=== PATIENT | female | born 1940 | race Caucasian/White ===

== ENCOUNTER 2017-11-02 11:43 | Inpatient (IN) ==
[2017-11-02 13:08] LABS: Basophils % 0.3 % (0.0-0.8); Eosinophils # 0.1 10*3/uL (0.0-0.87); Eosinophils % 0.5 % (0.00-10.9); Hematocrit 39.7 VOL% (35.7-47.0); Hemoglobin 13.2 GM/DL (12.0-16.0); Immature Granulocytes % 0.5 %; Immature Granulocytes Absolute 0.07 #; Lymphocytes # 1.2 10*3/uL (1.4-4.0); Lymphocytes % 7.8 % (21.3-54.2); Mean Corpuscular HGB Conc 33.2 GM/DL (32-36); Mean Corpuscular Hemoglobin 30 PG (27-34); Mean Corpuscular Volume 91.1 FL (87-102); Monocytes # 0.6 10*3/uL (0.11-0.8); Monocytes % 3.9 % (1.7-12.7); Neutrophils # 13.1 10*3/uL (1.4-7.4); Platelet Count 231 T/CUMM (130-400); Red Blood Count 4.36 MC/CUMM (3.8-5.5); Red Cell Distribution Width 14.6 % (9.3-17.3)
[2017-11-02 13:27] LABS: Blood Urea Nitrogen 27 MG/DL (7-18); Calcium 8.7 MG/DL (8.5-10.1); Glucose 143 MG/DL (74-106); Potassium 4.2 MMOL/L (3.5-5.1); Sodium 136 MMOL/L (136-145)
[2017-11-02 14:41] LABS: Lactic Acid 3.1 MMOL/L (0.4-2.0)
[2017-11-02 15:03] LABS: Free T4 (Free Thyroxine) 1.48 NG/DL (0.76-1.46); Uric Acid 5.2 MG/DL (2.6-6.0)
[2017-11-02 20:58] LABS: Lactic Acid 2.1 MMOL/L (0.4-2.0)
[2017-11-03 08:14] LABS: Basophils % 0.1 % (0.0-0.8); Hematocrit 32.5 VOL% (35.7-47.0); Hemoglobin 10.6 GM/DL (12.0-16.0); Immature Granulocytes % 0.6 %; Immature Granulocytes Absolute 0.06 #; Lymphocytes # 0.5 10*3/uL (1.4-4.0); Lymphocytes % 5.5 % (21.3-54.2); Mean Corpuscular HGB Conc 32.6 GM/DL (32-36); Mean Corpuscular Hemoglobin 31 PG (27-34); Mean Corpuscular Volume 93.4 FL (87-102); Mean Platelet Volume 9.5 FL (9.6-12.0); Monocytes # 0.1 10*3/uL (0.11-0.8); Monocytes % 0.6 % (1.7-12.7); Neutrophils # 8.9 10*3/uL (1.4-7.4); Neutrophils % 93.2 % (38.7-73.9); Platelet Count 180 T/CUMM (130-400); Red Blood Count 3.48 MC/CUMM (3.8-5.5); Red Cell Distribution Width 14.8 % (9.3-17.3); White Blood Count 9.6 T/CUMM (4-12)
[2017-11-03 08:30] LABS: Band Neutrophils 2 % (0-10); Lymphocytes 7 % (20-55); Platelet Estimate Normal; Segmented Neutrophils 91 % (50-85); Total Cells Counted 100
[2017-11-03 08:31] LABS: Anisocytosis Slight; Poikilocytosis Slight
[2017-11-03 08:43] LABS: Albumin 2.8 G/DL (3.4-5.0); Bilirubin,Total 0.5 MG/DL (0.2-1.0); Calcium 7.5 MG/DL (8.5-10.1); Osmolality,Calculated 292.3 MOS/KG (273-304); Potassium 4.2 MMOL/L (3.5-5.1); Total Protein 6.2 G/DL (6.4-8.3)
[2017-11-04 08:05] LABS: Basophils % 0.1 % (0.0-0.8); Hematocrit 30.6 VOL% (35.7-47.0); Hemoglobin 10.1 GM/DL (12.0-16.0); Immature Granulocytes % 1.1 %; Immature Granulocytes Absolute 0.19 #; Lymphocytes # 0.5 10*3/uL (1.4-4.0); Lymphocytes % 2.6 % (21.3-54.2); Mean Corpuscular Hemoglobin 30 PG (27-34); Mean Corpuscular Volume 91.9 FL (87-102); Mean Platelet Volume 9.6 FL (9.6-12.0); Monocytes # 0.2 10*3/uL (0.11-0.8); Monocytes % 1.3 % (1.7-12.7); Neutrophils # 16.7 10*3/uL (1.4-7.4); Neutrophils % 94.9 % (38.7-73.9); Platelet Count 166 T/CUMM (130-400); Red Blood Count 3.33 MC/CUMM (3.8-5.5); Red Cell Distribution Width 15.2 % (9.3-17.3); White Blood Count 17.5 T/CUMM (4-12)
[2017-11-04 08:31] LABS: Hypochromasia 1+; Lymphocytes 2 % (20-55); Ovalocytes Slight; Platelet Estimate Normal; Segmented Neutrophils 98 % (50-85); Total Cells Counted 100
[2017-11-04 08:41] LABS: Alanine Aminotransferase 23 U/L (13-56); Albumin 2.7 G/DL (3.4-5.0); Alkaline Phosphatase 39 U/L (45-117); Aspartate Amino Transferase 20 U/L (0-37); Bilirubin,Total < 0.39 MG/DL (0.2-1.0); Blood Urea Nitrogen 32 MG/DL (7-18); Glucose 198 MG/DL (74-106); Osmolality,Calculated 293.3 MOS/KG (273-304); Potassium 4.2 MMOL/L (3.5-5.1); Sodium 141 MMOL/L (136-145); Total Protein 5.9 G/DL (6.4-8.3)
[2017-11-04 21:41] LABS: Apearance,Urine CLEAR (Clear); Bilirubin,Urine Negative (Negative); Blood, Urine Small mg/dL (Negative); Glucose,Urine (UA) 150 mg/dL (Negative); Ketones,Urine Negative (Negative); Mucus,Urine Occasional /LPF (Occasional); Nitrite,Urine Negative (Negative); Protein,Urine 100 MG/DL; RBC,Urine <1 /HPF (0-4); Squamous Epithelial Cell,Urine Occasional /HPF (0-10); Urine Color Straw (Yellow); Urine Specific Gravity 1.008 (1.001-1.035); Urine Urobilinogen < 2.0 EU/DL (0.2-1.0)
[2017-11-05 09:05] LABS: Basophils % 0.1 % (0.0-0.8); Hematocrit 33.4 VOL% (35.7-47.0); Immature Granulocytes % 1.6 %; Immature Granulocytes Absolute 0.29 #; Lymphocytes # 0.7 10*3/uL (1.4-4.0); Lymphocytes % 3.7 % (21.3-54.2); Mean Corpuscular HGB Conc 32.9 GM/DL (32-36); Mean Corpuscular Hemoglobin 31 PG (27-34); Mean Corpuscular Volume 92.5 FL (87-102); Monocytes # 0.4 10*3/uL (0.11-0.8); NRBC # 0.03 10*3/uL; Neutrophils # 16.7 10*3/uL (1.4-7.4); Neutrophils % 92.6 % (38.7-73.9); Platelet Count 180 T/CUMM (130-400); Red Blood Count 3.61 MC/CUMM (3.8-5.5); Red Cell Distribution Width 15.7 % (9.3-17.3)
[2017-11-05 09:21] LABS: Alanine Aminotransferase 36 U/L (13-56); Alkaline Phosphatase 41 U/L (45-117); Aspartate Amino Transferase 33 U/L (0-37); Bilirubin,Total < 0.39 MG/DL (0.2-1.0); Blood Urea Nitrogen 37 MG/DL (7-18); Calcium 8.1 MG/DL (8.5-10.1); Glucose 180 MG/DL (74-106); Potassium 4.3 MMOL/L (3.5-5.1); Sodium 143 MMOL/L (136-145); Total Protein 6.3 G/DL (6.4-8.3)
[2017-11-05 14:08] LABS: Lymphocytes 2 % (20-55); Nucleated Red Blood Cells 1 (0-5); Segmented Neutrophils 97 % (50-85); Total Cells Counted 100
[2017-11-05 14:10] LABS: Anisocytosis 1+; Hypochromasia 1+; Ovalocytes Few; Platelet Estimate Normal
[2017-11-06 07:40] LABS: Basophils % 0.1 % (0.0-0.8); Hematocrit 34.4 VOL% (35.7-47.0); Hemoglobin 11.3 GM/DL (12.0-16.0); Immature Granulocytes Absolute 0.29 #; Lymphocytes # 0.5 10*3/uL (1.4-4.0); Lymphocytes % 3.3 % (21.3-54.2); Mean Corpuscular HGB Conc 32.8 GM/DL (32-36); Mean Corpuscular Hemoglobin 31 PG (27-34); Mean Platelet Volume 9.9 FL (9.6-12.0); Monocytes # 0.3 10*3/uL (0.11-0.8); NRBC # 0.03 10*3/uL; Neutrophils # 13.1 10*3/uL (1.4-7.4); Neutrophils % 92.6 % (38.7-73.9); Platelet Count 169 T/CUMM (130-400); Red Cell Distribution Width 15.6 % (9.3-17.3); White Blood Count 14.2 T/CUMM (4-12)
[2017-11-06 08:09] LABS: Albumin 2.9 G/DL (3.4-5.0); Calcium 8.4 MG/DL (8.5-10.1); Osmolality,Calculated 297.3 MOS/KG (273-304); Potassium 4.3 MMOL/L (3.5-5.1); Total Protein 6.3 G/DL (6.4-8.3)
[2017-11-06 12:37] LABS: Lymphocytes 3 % (20-55); Platelet Estimate Adequate; Polychromasia Slight; Segmented Neutrophils 97 % (50-85); Total Cells Counted 100
[2017-11-07 05:55] LABS: Basophils % 0.2 % (0.0-0.8); Hematocrit 35.4 VOL% (35.7-47.0); Hemoglobin 11.9 GM/DL (12.0-16.0); Immature Granulocytes % 1.9 %; Immature Granulocytes Absolute 0.22 #; Lymphocytes # 0.4 10*3/uL (1.4-4.0); Lymphocytes % 3.7 % (21.3-54.2); Mean Corpuscular HGB Conc 33.6 GM/DL (32-36); Mean Corpuscular Hemoglobin 30 PG (27-34); Mean Corpuscular Volume 89.2 FL (87-102); Mean Platelet Volume 10.2 FL (9.6-12.0); Monocytes # 0.3 10*3/uL (0.11-0.8); Monocytes % 2.4 % (1.7-12.7); NRBC # 0.06 10*3/uL; Neutrophils # 10.9 10*3/uL (1.4-7.4); Neutrophils % 91.8 % (38.7-73.9); Platelet Count 185 T/CUMM (130-400); Red Blood Count 3.97 MC/CUMM (3.8-5.5); Red Cell Distribution Width 15.3 % (9.3-17.3); White Blood Count 11.9 T/CUMM (4-12)
[2017-11-07 06:25] LABS: Calcium 9.3 MG/DL (8.5-10.1); Osmolality,Calculated 296.5 MOS/KG (273-304); Potassium 4.6 MMOL/L (3.5-5.1)
[2017-11-07 06:30] LABS: Hypochromasia 1+; Lymphocytes 3 % (20-55); Platelet Estimate Adequate; Segmented Neutrophils 96 % (50-85); Total Cells Counted 100
[2017-11-07 11:54] VITALS: BP 150/82
== END 2017-11-07 14:31 | disposition home or self-care (01) | DRG 194 ==
LOC: N.ED 11:43 → SUATTDRO 16:41 → N.EDINP 16:41 → N.5E 18:58
PROVIDERS: ADMIT Internal Medicine; ATTEND Internal Medicine

== ENCOUNTER 2019-01-05 14:04 | Inpatient (IN) ==
[2019-01-05] MEDS ORDERED: LACTATED RINGERS 1,000 ML IV ONE (14:45)
[2019-01-05 14:57] LABS: Basophils # 0.1 10*3/uL (0.0-0.2); Basophils % 0.4 % (0.0-0.8); Eosinophils # 0.1 10*3/uL (0.0-0.87); Eosinophils % 0.9 % (0.00-10.9); Hematocrit 39.4 VOL% (35.7-47.0); Hemoglobin 12.7 GM/DL (12.0-16.0); Immature Granulocytes % 0.5 %; Immature Granulocytes Absolute 0.06 #; Lymphocytes # 2.2 10*3/uL (1.4-4.0); Lymphocytes % 19.1 % (21.3-54.2); Mean Corpuscular HGB Conc 32.2 GM/DL (32-36); Mean Corpuscular Volume 93.1 FL (87-102); Mean Platelet Volume 8.9 FL (9.6-12.0); Monocytes % 6.8 % (1.7-12.7); Neutrophils % 72.3 % (38.7-73.9); Platelet Count 243 T/CUMM (130-400); Red Blood Count 4.23 MC/CUMM (3.8-5.5); White Blood Count 11.6 T/CUMM (4-12)
[2019-01-05 15:17] LABS: Albumin 2.9 G/DL (3.4-5.0); Bilirubin,Total 0.4 MG/DL (0.2-1.0); Calcium 9.1 MG/DL (8.5-10.1); Osmolality,Calculated 272.4 MOS/KG (273-304); Total Protein 6.5 G/DL (6.4-8.3)
[2019-01-05 15:51] LABS: Apearance,Urine Slightly Hazy (Clear); Bacteria,Urine Occasional /HPF (Few); Bilirubin,Urine Negative (Negative); Blood, Urine Negative (Negative); Glucose,Urine (UA) 50 mg/dL (Negative); Ketones,Urine 5 mg/dL (Negative); Mucus,Urine Occasional /LPF (Occasional); Nitrite,Urine Negative (Negative); Protein,Urine >=500 MG/DL; RBC,Urine 1 /HPF (0-4); Squamous Epithelial Cell,Urine Occasional /HPF (0-10); Urine Color Yellow (Yellow); Urine Specific Gravity 1.016 (1.001-1.035); WBC,Urine 2 /HPF (0-6)
[2019-01-05] MEDS ORDERED: ONDANSETRON 4 MG/2 ML VIAL IV PRN (17:30)
[2019-01-05] MEDS ORDERED: ACETAMINOPHEN 325 MG TABLET PO PRN (17:30)
[2019-01-05] MEDS ORDERED: CRANBERRY EXTRACT VITAMIN C PO SCH (21:00)
[2019-01-05] MEDS ORDERED: MECLIZINE 25 MG TABLET PO SCH (21:00)
[2019-01-05] MEDS: SODIUM CHLORIDE 0.9% 1,000 ML IV SCH (21:06)
[2019-01-05] MEDS: ATORVASTATIN 80 MG TABLET PO SCH (21:25)
[2019-01-05] MEDS: EZETIMIBE 10 MG TABLET PO SCH (21:25)
[2019-01-05] MEDS: ASCORBIC ACID 500 MG TABLET PO SCH (21:25)
[2019-01-05] MEDS: ZALEPLON 5 MG CAPSULE PO PRN (22:27)
[2019-01-06] MEDS: hydrALAZINE 20 MG/1 ML VIAL IV PRN ×2 (05:02→15:27)
[2019-01-06] MEDS: ALBUTEROL 2.5 MG/3 ML NEB RESP TX PRN (05:40)
[2019-01-06] MEDS: LEVOTHYROXINE 88 MCG TABLET PO SCH (05:56)
[2019-01-06 06:11] LABS: Basophils % 0.3 % (0.0-0.8); Eosinophils # 0.1 10*3/uL (0.0-0.87); Eosinophils % 0.8 % (0.00-10.9); Hematocrit 42.3 VOL% (35.7-47.0); Hemoglobin 13.8 GM/DL (12.0-16.0); Immature Granulocytes % 0.3 %; Immature Granulocytes Absolute 0.04 #; Lymphocytes # 1.9 10*3/uL (1.4-4.0); Lymphocytes % 16.3 % (21.3-54.2); Mean Corpuscular HGB Conc 32.6 GM/DL (32-36); Mean Corpuscular Volume 93.8 FL (87-102); Mean Platelet Volume 9.3 FL (9.6-12.0); Monocytes % 5.4 % (1.7-12.7); Neutrophils % 76.9 % (38.7-73.9); Platelet Count 270 T/CUMM (130-400); Red Blood Count 4.51 MC/CUMM (3.8-5.5); White Blood Count 11.7 T/CUMM (4-12)
[2019-01-06 06:42] LABS: Calcium 10.3 MG/DL (8.5-10.1); Osmolality,Calculated 280.7 MOS/KG (273-304)
[2019-01-06] MEDS: SODIUM CHLORIDE 0.9% 1,000 ML IV SCH (08:24)
[2019-01-06] MEDS: CYANOCOBALAMIN 500 MCG TABLET PO SCH (08:24)
[2019-01-06] MEDS: MAGNESIUM OXIDE 400 MG TABLET PO SCH (08:24)
[2019-01-06] MEDS: ASCORBIC ACID 500 MG TABLET PO SCH ×2 (08:25→21:01)
[2019-01-06] MEDS: METOPROLOL SUCCINATE XL 50 MG TABLET PO SCH (08:25)
[2019-01-06] MEDS: ALLOPURINOL 100 MG TABLET PO SCH (08:25)
[2019-01-06] MEDS ORDERED: PANTOPRAZOLE 40 MG TABLET PO SCH (09:00)
[2019-01-06] MEDS: POLYETHYLENE GLYCOL POWDER 17 GM PACK PO SCH ×2 (15:08→21:18)
[2019-01-06] MEDS: metroNIDAZOLE INJ 500 MG in PREMIX 1 EACH IV SCH ×2 (15:28→23:43)
[2019-01-06] MEDS: CIPROFLOXACIN INJ 400 MG in PREMIX 1 EACH IV SCH (16:45)
[2019-01-06] MEDS: PANTOPRAZOLE 40 MG TABLET PO SCH (21:01)
[2019-01-06] MEDS: ATORVASTATIN 80 MG TABLET PO SCH (21:01)
[2019-01-06] MEDS: EZETIMIBE 10 MG TABLET PO SCH (21:01)
[2019-01-06] MEDS: ZALEPLON 5 MG CAPSULE PO PRN (21:01)
[2019-01-07] MEDS: SODIUM CHLORIDE 0.9% 1,000 ML IV SCH ×3 (01:24→20:41)
[2019-01-07 03:25] LABS: Basophils % 0.3 % (0.0-0.8); Eosinophils % 0.1 % (0.00-10.9); Hematocrit 40.1 VOL% (35.7-47.0); Hemoglobin 12.8 GM/DL (12.0-16.0); Immature Granulocytes % 0.9 %; Immature Granulocytes Absolute 0.13 #; Lymphocytes # 1.2 10*3/uL (1.4-4.0); Lymphocytes % 8.6 % (21.3-54.2); Mean Corpuscular HGB Conc 31.9 GM/DL (32-36); Mean Corpuscular Volume 95.5 FL (87-102); Mean Platelet Volume 9.2 FL (9.6-12.0); Monocytes % 5.4 % (1.7-12.7); Neutrophils % 84.7 % (38.7-73.9); Platelet Count 228 T/CUMM (130-400); Red Cell Distribution Width 14.1 % (9.3-17.3); White Blood Count 14.5 T/CUMM (4-12)
[2019-01-07 03:40] LABS: Osmolality,Calculated 267.7 MOS/KG (273-304)
[2019-01-07] MEDS ORDERED: MAGNESIUM SULF RIDER 2 GM in PREMIX 1 EACH IV PRN ×4 (04:09→04:31)
[2019-01-07] MEDS ORDERED: MAGNESIUM SULF RIDER 4 GM in PREMIX 1 EACH IV PRN (04:34)
[2019-01-07] MEDS: hydrALAZINE 20 MG/1 ML VIAL IV PRN (04:39)
[2019-01-07] MEDS: MAGNESIUM SULF RIDER 2 GM in PREMIX 1 EACH IV PRN (05:37)
[2019-01-07] MEDS: LEVOTHYROXINE 88 MCG TABLET PO SCH (05:37)
[2019-01-07] MEDS: metroNIDAZOLE INJ 500 MG in PREMIX 1 EACH IV SCH ×3 (09:50→23:36)
[2019-01-07] MEDS: ASCORBIC ACID 500 MG TABLET PO SCH ×2 (09:50→20:42)
[2019-01-07] MEDS: PANTOPRAZOLE 40 MG TABLET PO SCH ×2 (09:50→20:42)
[2019-01-07] MEDS: MAGNESIUM OXIDE 400 MG TABLET PO SCH (09:51)
[2019-01-07] MEDS: CHOLECALCIFEROL 1,000 UNIT TABLET PO SCH (09:51)
[2019-01-07] MEDS: ALLOPURINOL 100 MG TABLET PO SCH (09:51)
[2019-01-07] MEDS: CYANOCOBALAMIN 500 MCG TABLET PO SCH (09:51)
[2019-01-07] MEDS: POLYETHYLENE GLYCOL POWDER 17 GM PACK PO SCH ×3 (09:51→20:46)
[2019-01-07] MEDS: METOPROLOL SUCCINATE XL 50 MG TABLET PO SCH (09:51)
[2019-01-07] MEDS: CIPROFLOXACIN INJ 400 MG in PREMIX 1 EACH IV SCH (11:22)
[2019-01-07] MEDS ORDERED: SODIUM POLYSTYRENE SULFATE 15 GM/60 ML BOTTLE PO ONE (12:22)
[2019-01-07] MEDS: EZETIMIBE 10 MG TABLET PO SCH (20:42)
[2019-01-07] MEDS: ATORVASTATIN 80 MG TABLET PO SCH (20:42)
[2019-01-07] MEDS: ZALEPLON 5 MG CAPSULE PO PRN (23:36)
[2019-01-08] MEDS: CIPROFLOXACIN INJ 400 MG in PREMIX 1 EACH IV SCH (05:10)
[2019-01-08] MEDS: SODIUM CHLORIDE 0.9% 1,000 ML IV SCH (05:13)
[2019-01-08 05:35] LABS: Basophils % 0.2 % (0.0-0.8); Eosinophils % 0.1 % (0.00-10.9); Hematocrit 35.4 VOL% (35.7-47.0); Hemoglobin 11.5 GM/DL (12.0-16.0); Immature Granulocytes % 0.7 %; Immature Granulocytes Absolute 0.14 #; Lymphocytes # 0.9 10*3/uL (1.4-4.0); Lymphocytes % 4.4 % (21.3-54.2); Mean Corpuscular HGB Conc 32.5 GM/DL (32-36); Mean Corpuscular Volume 94.7 FL (87-102); Mean Platelet Volume 9.5 FL (9.6-12.0); Neutrophils % 89.6 % (38.7-73.9); Platelet Count 218 T/CUMM (130-400); Red Blood Count 3.74 MC/CUMM (3.8-5.5); Red Cell Distribution Width 14.2 % (9.3-17.3); White Blood Count 19.2 T/CUMM (4-12)
[2019-01-08 05:51] LABS: Calcium 8.4 MG/DL (8.5-10.1)
[2019-01-08] MEDS: LEVOTHYROXINE 88 MCG TABLET PO SCH (05:51)
[2019-01-08 06:02] LABS: Hypochromasia Slight; Lymphocytes 4 % (20-55); Segmented Neutrophils 95 % (50-85); Total Cells Counted 100
[2019-01-08 06:03] LABS: Burr Cells Slight; Microcytosis Slight; Ovalocytes Slight; Platelet Estimate Normal
[2019-01-08] MEDS: metroNIDAZOLE INJ 500 MG in PREMIX 1 EACH IV SCH ×3 (06:30→23:16)
[2019-01-08] MEDS: MAGNESIUM OXIDE 400 MG TABLET PO SCH (09:52)
[2019-01-08] MEDS: CYANOCOBALAMIN 500 MCG TABLET PO SCH (09:53)
[2019-01-08] MEDS: PANTOPRAZOLE 40 MG TABLET PO SCH ×2 (09:53→20:56)
[2019-01-08] MEDS: POLYETHYLENE GLYCOL POWDER 17 GM PACK PO SCH ×4 (09:53→20:56)
[2019-01-08] MEDS: METOPROLOL SUCCINATE XL 50 MG TABLET PO SCH (09:53)
[2019-01-08] MEDS: ALLOPURINOL 100 MG TABLET PO SCH (09:58)
[2019-01-08] MEDS: ASCORBIC ACID 500 MG TABLET PO SCH ×2 (09:58→20:56)
[2019-01-08] MEDS ORDERED: LORazepam 2 MG/1 ML VIAL IV ONE (13:54)
[2019-01-08] MEDS ORDERED: FUROSEMIDE 40 MG/4 ML VIAL IV ONE (15:45)
[2019-01-08] MEDS ORDERED: PIPERACILLIN/TAZOBACTAM 3,375 MG in SODIUM CHLORIDE 0.9% 100 ML IV SCH (16:30)
[2019-01-08] MEDS ORDERED: SODIUM CHLORIDE 0.45% 1,000 ML IV SCH (17:00)
[2019-01-08] MEDS: ZALEPLON 5 MG CAPSULE PO PRN (20:56)
[2019-01-08] MEDS: EZETIMIBE 10 MG TABLET PO SCH (20:56)
[2019-01-08] MEDS: ATORVASTATIN 80 MG TABLET PO SCH (20:56)
[2019-01-09] MEDS: PIPERACILLIN/TAZOBACTAM 2,250 MG in SODIUM CHLORIDE 0.9% 100 ML IV SCH ×3 (01:03→17:15)
[2019-01-09 02:35] LABS: Basophils % 0.2 % (0.0-0.8); Eosinophils % 0.1 % (0.00-10.9); Hemoglobin 10.6 GM/DL (12.0-16.0); Immature Granulocytes % 0.8 %; Immature Granulocytes Absolute 0.11 #; Lymphocytes # 0.5 10*3/uL (1.4-4.0); Lymphocytes % 3.7 % (21.3-54.2); Mean Corpuscular HGB Conc 31.2 GM/DL (32-36); Mean Corpuscular Volume 96.6 FL (87-102); Mean Platelet Volume 9.3 FL (9.6-12.0); Monocytes % 4.1 % (1.7-12.7); Neutrophils % 91.1 % (38.7-73.9); Platelet Count 211 T/CUMM (130-400); Red Blood Count 3.52 MC/CUMM (3.8-5.5); Red Cell Distribution Width 14.6 % (9.3-17.3); White Blood Count 13.1 T/CUMM (4-12)
[2019-01-09 02:56] LABS: Albumin 2.7 G/DL (3.4-5.0); Bilirubin,Total 0.4 MG/DL (0.2-1.0); Calcium 7.5 MG/DL (8.5-10.1); Osmolality,Calculated 272.5 MOS/KG (273-304); Total Protein 5.5 G/DL (6.4-8.3)
[2019-01-09] MEDS ORDERED: FUROSEMIDE 20 MG/2 ML VIAL IV ONE (03:31)
[2019-01-09] MEDS ORDERED: ETOMIDATE 20 MG/10 ML VIAL IV ONE ×2 (03:35→04:07)
[2019-01-09] MEDS ORDERED: VECURONIUM 10 MG VIAL IV ONE ×2 (03:35→04:06)
[2019-01-09] MEDS ORDERED: PROPOFOL 1,000 MG/100 ML BOTTLE IV ONE (03:39)
[2019-01-09] MEDS ORDERED: MIDAZOLAM 100 MG in SODIUM CHLORIDE 0.9% 80 ML IV PRN (03:48)
[2019-01-09] MEDS ORDERED: NOREPINEPHRINE 4 MG/4 ML VIAL IV ONE (03:52)
[2019-01-09] MEDS ORDERED: NALOXONE 0.4 MG/ML VIAL IV ONE ×2 (04:00→04:07)
[2019-01-09] MEDS ORDERED: NALOXONE 0.4 MG/ML VIAL ONE (04:01)
[2019-01-09] MEDS: NOREPINEPHRINE 8 MG in SODIUM CHLORIDE 0.9% 242 ML IV PRN ×3 (04:05→18:21)
[2019-01-09 04:20] LABS: Hypochromasia 1+; Lymphocytes 2 % (20-55); Platelet Estimate Adequate; Segmented Neutrophils 96 % (50-85); Total Cells Counted 100
[2019-01-09 04:21] LABS: ABG Base Excess -1.5 MMOL/L (-2.5-2.5); ABG HCO3 23.2 MMOL/L (20-26); ABG PCO2 45.9 MM HG (35-48); ABG PH 7.337 (7.35-7.45); ABG TCO2 22.3 MMOL/L (23-27); Allen Test Positive; Pt O2 Delivery Device Ventilator
[2019-01-09 04:22] LABS: Microcytosis Slight
[2019-01-09] MEDS: PROPOFOL 1,000 MG/100 ML BOTTLE IV SCH (05:27)
[2019-01-09 05:36] LABS: Bacteria,Urine Few /HPF (Few); Mucus,Urine Occasional /LPF (Occasional); RBC,Urine 31 /HPF (0-4); Squamous Epithelial Cell,Urine Occasional /HPF (0-10); WBC,Urine 1087 /HPF (0-6)
[2019-01-09 05:42] LABS: Apearance,Urine Cloudy (Clear); Glucose,Urine (UA) >500 mg/dL (Negative); Ketones,Urine 5 mg/dL (Negative); Nitrite,Urine Negative (Negative); Protein,Urine 100 MG/DL; Urine Color Yellow (Yellow); Urine Specific Gravity 1.008 (1.001-1.035)
[2019-01-09 05:43] LABS: Bilirubin,Urine Negative (Negative); Blood, Urine Negative (Negative); Urine Urobilinogen < 2.0 EU/DL (0.2-1.0)
[2019-01-09] MEDS: hydrALAZINE 20 MG/1 ML VIAL IV PRN (06:30)
[2019-01-09] MEDS: metroNIDAZOLE INJ 500 MG in PREMIX 1 EACH IV SCH (08:37)
[2019-01-09] MEDS ORDERED: CIPROFLOXACIN INJ 400 MG in PREMIX 1 EACH IV SCH (09:00)
[2019-01-09] MEDS: ASCORBIC ACID 500 MG TABLET PO SCH ×2 (09:08→21:29)
[2019-01-09] MEDS: CYANOCOBALAMIN 500 MCG TABLET PO SCH (09:08)
[2019-01-09] MEDS: ALLOPURINOL 100 MG TABLET PO SCH (09:08)
[2019-01-09] MEDS: MAGNESIUM OXIDE 400 MG TABLET PO SCH (09:09)
[2019-01-09] MEDS: LEVOTHYROXINE 88 MCG TABLET PO SCH (09:09)
[2019-01-09] MEDS: LANSOPRAZOLE ODT 30 MG TABLET PER TUBE SCH ×2 (09:09→21:30)
[2019-01-09] MEDS: POLYETHYLENE GLYCOL POWDER 17 GM PACK PO SCH ×3 (09:10→21:30)
[2019-01-09] MEDS: CHOLECALCIFEROL 1,000 UNIT TABLET PO SCH (09:10)
[2019-01-09] MEDS ORDERED: SODIUM CHLORIDE 0.9% 1,000 ML IV ONE ×2 (09:48→12:01)
[2019-01-09] MEDS ORDERED: VANCOMYCIN INJ 1,000 MG in SODIUM CHLORIDE 0.9% 250 ML IV PRN (10:00)
[2019-01-09] MEDS: METOPROLOL SUCCINATE XL 50 MG TABLET PO SCH (10:22)
[2019-01-09] MEDS ORDERED: VANCOMYCIN INJ 1,250 MG in SODIUM CHLORIDE 0.9% 250 ML IV ONE (10:30)
[2019-01-09] MEDS: SODIUM CHLORIDE 0.9% 1,000 ML IV SCH ×2 (10:54→23:17)
[2019-01-09] MEDS ORDERED: AMIODARONE INJ 150 MG in DEXTROSE 5% 100 ML IV ONE (12:10)
[2019-01-09] MEDS ORDERED: AMIODARONE INJ 450 MG in DEXTROSE 5% 241 ML IV SCH (12:30)
[2019-01-09] MEDS ORDERED: DOBUTamine 500 MG/250 ML PREMIX IV PRN (18:16)
[2019-01-09] MEDS ORDERED: PHENYLEPHRINE DRIP 40 MG/250 ML PREMIX IV PRN (19:49)
[2019-01-09] MEDS: ATORVASTATIN 80 MG TABLET PO SCH (21:28)
[2019-01-09] MEDS: EZETIMIBE 10 MG TABLET PO SCH (21:29)
[2019-01-10] MEDS: AMIODARONE INJ 450 MG in DEXTROSE 5% 241 ML IV SCH ×2 (01:06→18:24)
[2019-01-10] MEDS: NOREPINEPHRINE 8 MG in SODIUM CHLORIDE 0.9% 242 ML IV PRN ×2 (01:38→15:59)
[2019-01-10] MEDS: PIPERACILLIN/TAZOBACTAM 2,250 MG in SODIUM CHLORIDE 0.9% 100 ML IV SCH ×3 (01:39→17:38)
[2019-01-10] MEDS: PROPOFOL 1,000 MG/100 ML BOTTLE IV SCH (05:42)
[2019-01-10] MEDS: SODIUM CHLORIDE 0.9% 1,000 ML IV SCH ×3 (07:18→23:15)
[2019-01-10] MEDS: LEVOTHYROXINE 88 MCG TABLET PO SCH (07:24)
[2019-01-10] MEDS: LANSOPRAZOLE ODT 30 MG TABLET PER TUBE SCH ×2 (09:40→22:22)
[2019-01-10] MEDS: ALLOPURINOL 100 MG TABLET PO SCH (09:40)
[2019-01-10] MEDS: ASCORBIC ACID 500 MG TABLET PO SCH ×2 (09:40→22:22)
[2019-01-10] MEDS: POLYETHYLENE GLYCOL POWDER 17 GM PACK PO SCH ×3 (09:40→22:22)
[2019-01-10] MEDS: CYANOCOBALAMIN 500 MCG TABLET PO SCH (09:40)
[2019-01-10] MEDS: MAGNESIUM OXIDE 400 MG TABLET PO SCH (09:40)
[2019-01-10 12:21] LABS: Basophils % 0.2 % (0.0-0.8); Eosinophils % 0.1 % (0.00-10.9); Hematocrit 34.3 VOL% (35.7-47.0); Hemoglobin 10.8 GM/DL (12.0-16.0); Immature Granulocytes % 0.7 %; Immature Granulocytes Absolute 0.14 #; Lymphocytes # 0.4 10*3/uL (1.4-4.0); Lymphocytes % 1.8 % (21.3-54.2); Mean Corpuscular HGB Conc 31.5 GM/DL (32-36); Mean Corpuscular Volume 96.6 FL (87-102); Mean Platelet Volume 9.4 FL (9.6-12.0); NRBC # 0.03 10*3/uL; Neutrophils % 94.2 % (38.7-73.9); Platelet Count 164 T/CUMM (130-400); Red Blood Count 3.55 MC/CUMM (3.8-5.5); Red Cell Distribution Width 14.9 % (9.3-17.3); White Blood Count 19.1 T/CUMM (4-12)
[2019-01-10 12:33] LABS: Calcium 6.6 MG/DL (8.5-10.1); Osmolality,Calculated 287.4 MOS/KG (273-304)
[2019-01-10 14:58] LABS: Band Neutrophils 5 % (0-10); Lymphocytes 1 % (20-55); Segmented Neutrophils 94 % (50-85); Total Cells Counted 100
[2019-01-10 14:59] LABS: Acanthocytes Moderate; Anisocytosis 2+
[2019-01-10 15:00] LABS: Ovalocytes Slight
[2019-01-10] MEDS: ATORVASTATIN 80 MG TABLET PO SCH (22:21)
[2019-01-10] MEDS: AMIODARONE 200 MG TABLET PO SCH (22:21)
[2019-01-10] MEDS: EZETIMIBE 10 MG TABLET PO SCH (22:22)
[2019-01-11] MEDS: PIPERACILLIN/TAZOBACTAM 2,250 MG in SODIUM CHLORIDE 0.9% 100 ML IV SCH ×3 (02:00→16:17)
[2019-01-11 04:51] LABS: ABG Base Excess -7.8 MMOL/L (-2.5-2.5); ABG HCO3 18.1 MMOL/L (20-26); ABG Oxygen Saturation 99.6 % (95-100); ABG PCO2 29.5 MM HG (35-48); ABG PH 7.358 (7.35-7.45); ABG TCO2 15.1 MMOL/L (23-27); Allen Test Positive; Pt O2 Delivery Device Ventilator
[2019-01-11 05:16] LABS: Calcium 6.8 MG/DL (8.5-10.1); Osmolality,Calculated 287.3 MOS/KG (273-304)
[2019-01-11 05:25] LABS: Basophils % 0.2 % (0.0-0.8); Eosinophils # 0.1 10*3/uL (0.0-0.87); Eosinophils % 0.7 % (0.00-10.9); Hemoglobin 10.2 GM/DL (12.0-16.0); Immature Granulocytes % 0.4 %; Immature Granulocytes Absolute 0.04 #; Lymphocytes # 0.7 10*3/uL (1.4-4.0); Lymphocytes % 6.3 % (21.3-54.2); Mean Corpuscular HGB Conc 28.8 GM/DL (32-36); Mean Corpuscular Volume 106.3 FL (87-102); Monocytes % 5.5 % (1.7-12.7); NRBC # 0.02 10*3/uL; Neutrophils % 86.9 % (38.7-73.9); Platelet Count 130 T/CUMM (130-400); Red Blood Count 3.33 MC/CUMM (3.8-5.5); Red Cell Distribution Width 14.9 % (9.3-17.3); White Blood Count 10.6 T/CUMM (4-12)
[2019-01-11 05:28] LABS: Hematocrit 34.1 VOL% (35.7-47.0)
[2019-01-11] MEDS: PROPOFOL 1,000 MG/100 ML BOTTLE IV SCH ×2 (05:30→09:07)
[2019-01-11] MEDS: LEVOTHYROXINE 88 MCG TABLET PO SCH (06:28)
[2019-01-11] MEDS ORDERED: VANCOMYCIN INJ 1,000 MG in SODIUM CHLORIDE 0.9% 250 ML IV ONE (08:30)
[2019-01-11] MEDS ORDERED: LORazepam 2 MG/1 ML VIAL IV PRN (08:32)
[2019-01-11] MEDS: ALBUTEROL 2.5 MG/3 ML NEB RESP TX PRN (08:35)
[2019-01-11] MEDS ORDERED: SUCCINYLCHOLINE 200 MG/10 ML VIAL IV ONE (09:00)
[2019-01-11] MEDS ORDERED: SUCCINYLCHOLINE 200 MG/10 ML VIAL ONE (09:07)
[2019-01-11] MEDS: ALBUTEROL/IPRATROPIUM 3 ML NEB RESP TX SCH ×4 (11:27→22:53)
[2019-01-11] MEDS: LANSOPRAZOLE ODT 30 MG TABLET PER TUBE SCH ×2 (11:40→21:32)
[2019-01-11] MEDS: AMIODARONE 200 MG TABLET PO SCH ×2 (11:40→21:33)
[2019-01-11] MEDS: ASCORBIC ACID 500 MG TABLET PO SCH ×2 (11:40→21:32)
[2019-01-11] MEDS: CHOLECALCIFEROL 1,000 UNIT TABLET PO SCH (11:40)
[2019-01-11] MEDS: CYANOCOBALAMIN 500 MCG TABLET PO SCH (11:40)
[2019-01-11] MEDS: MAGNESIUM OXIDE 400 MG TABLET PO SCH (11:40)
[2019-01-11] MEDS: ALLOPURINOL 100 MG TABLET PO SCH (11:40)
[2019-01-11] MEDS: POLYETHYLENE GLYCOL POWDER 17 GM PACK PO SCH ×3 (11:41→21:33)
[2019-01-11] MEDS: AMIODARONE INJ 450 MG in DEXTROSE 5% 241 ML IV SCH (11:49)
[2019-01-11] MEDS: methylPREDNISolone SOD SUC 40 MG/1 ML VIAL IV SCH ×2 (11:50→16:36)
[2019-01-11] MEDS: SODIUM CHLORIDE 0.9% 1,000 ML IV SCH (11:55)
[2019-01-11] MEDS: SODIUM BICARB INJ 50 MEQ in DEXTROSE 5% NACL 0.45% 1,000 ML IV SCH (13:30)
[2019-01-11] MEDS: ATORVASTATIN 80 MG TABLET PO SCH (21:32)
[2019-01-11] MEDS: EZETIMIBE 10 MG TABLET PO SCH (21:32)
[2019-01-12] MEDS: PIPERACILLIN/TAZOBACTAM 2,250 MG in SODIUM CHLORIDE 0.9% 100 ML IV SCH ×3 (00:59→17:30)
[2019-01-12] MEDS: SODIUM BICARB INJ 50 MEQ in DEXTROSE 5% NACL 0.45% 1,000 ML IV SCH (00:59)
[2019-01-12] MEDS: AMIODARONE INJ 450 MG in DEXTROSE 5% 241 ML IV SCH (00:59)
[2019-01-12] MEDS: methylPREDNISolone SOD SUC 40 MG/1 ML VIAL IV SCH ×3 (01:02→17:45)
[2019-01-12] MEDS: ALBUTEROL/IPRATROPIUM 3 ML NEB RESP TX SCH ×6 (02:22→22:40)
[2019-01-12 04:08] LABS: ABG Base Excess -6.3 MMOL/L (-2.5-2.5); ABG HCO3 19.3 MMOL/L (20-26); ABG Oxygen Saturation 99.5 % (95-100); ABG PCO2 30.9 MM HG (35-48); ABG PH 7.373 (7.35-7.45); ABG TCO2 16.3 MMOL/L (23-27); Allen Test Positive; Pt O2 Delivery Device Ventilator
[2019-01-12] MEDS: LEVOTHYROXINE 88 MCG TABLET PO SCH (05:48)
[2019-01-12 07:54] LABS: Basophils % 0.2 % (0.0-0.8); Eosinophils % 0.1 % (0.00-10.9); Hematocrit 32.6 VOL% (35.7-47.0); Hemoglobin 10.6 GM/DL (12.0-16.0); Immature Granulocytes Absolute 0.11 #; Lymphocytes # 0.3 10*3/uL (1.4-4.0); Lymphocytes % 2.3 % (21.3-54.2); Mean Corpuscular HGB Conc 32.5 GM/DL (32-36); Mean Corpuscular Volume 95.3 FL (87-102); Mean Platelet Volume 9.7 FL (9.6-12.0); Monocytes % 0.7 % (1.7-12.7); Neutrophils % 95.7 % (38.7-73.9); Platelet Count 143 T/CUMM (130-400); Red Blood Count 3.42 MC/CUMM (3.8-5.5); Red Cell Distribution Width 14.9 % (9.3-17.3); White Blood Count 10.8 T/CUMM (4-12)
[2019-01-12 08:13] LABS: Albumin 2.1 G/DL (3.4-5.0); Bilirubin,Total 0.5 MG/DL (0.2-1.0); Calcium 6.8 MG/DL (8.5-10.1); Osmolality,Calculated 294.3 MOS/KG (273-304); Total Protein 5.1 G/DL (6.4-8.3)
[2019-01-12 08:14] LABS: Burr Cells Slight; Hypochromasia 1+; Lymphocytes 3 % (20-55); Ovalocytes Slight; Platelet Estimate Adequate; Segmented Neutrophils 96 % (50-85); Total Cells Counted 100
[2019-01-12] MEDS ORDERED: POTASSIUM CHLORIDE RIDER 10 MEQ in PREMIX 1 EACH IV PRN (08:27)
[2019-01-12] MEDS ORDERED: POTASSIUM CHLORIDE RIDER 20 MEQ in PREMIX 1 EACH IV PRN (08:29)
[2019-01-12] MEDS: MAGNESIUM OXIDE 400 MG TABLET PO SCH (09:44)
[2019-01-12] MEDS: LANSOPRAZOLE ODT 30 MG TABLET PER TUBE SCH ×2 (09:44→21:20)
[2019-01-12] MEDS: CYANOCOBALAMIN 500 MCG TABLET PO SCH (09:44)
[2019-01-12] MEDS: ALLOPURINOL 100 MG TABLET PO SCH (09:45)
[2019-01-12] MEDS: AMIODARONE 200 MG TABLET PO SCH ×2 (09:45→21:19)
[2019-01-12] MEDS: ASCORBIC ACID 500 MG TABLET PO SCH ×2 (09:45→21:19)
[2019-01-12] MEDS: POLYETHYLENE GLYCOL POWDER 17 GM PACK PO SCH ×3 (09:50→21:20)
[2019-01-12] MEDS: PROPOFOL 1,000 MG/100 ML BOTTLE IV SCH ×2 (09:50→19:00)
[2019-01-12] MEDS ORDERED: hydrALAZINE 20 MG/1 ML VIAL IV PRN (12:14)
[2019-01-12] MEDS ORDERED: VANCOMYCIN INJ 1,000 MG in SODIUM CHLORIDE 0.9% 250 ML IV ONE (12:30)
[2019-01-12] MEDS: DEXTROSE 5% IV SCH (14:31)
[2019-01-12] MEDS: POTASSIUM CHLORIDE IV SCH (14:31)
[2019-01-12] MEDS: SODIUM BICARB IV SCH (14:31)
[2019-01-12] MEDS ORDERED: DEXTROSE 50% 25 GM/50 ML VIAL IV PRN (16:20)
[2019-01-12] MEDS ORDERED: GLUCAGON 1 MG VIAL IM PRN (16:20)
[2019-01-12] MEDS: INSULIN REGULAR 100 UNIT/ML SUBCUT SCH ×2 (19:46→23:48)
[2019-01-12] MEDS: ATORVASTATIN 80 MG TABLET PO SCH (21:19)
[2019-01-12] MEDS: EZETIMIBE 10 MG TABLET PO SCH (21:19)
[2019-01-13] MEDS: methylPREDNISolone SOD SUC 40 MG/1 ML VIAL IV SCH ×3 (00:50→18:14)
[2019-01-13] MEDS: PIPERACILLIN/TAZOBACTAM 2,250 MG in SODIUM CHLORIDE 0.9% 100 ML IV SCH ×3 (00:52→18:16)
[2019-01-13] MEDS: DEXTROSE 5% IV SCH ×2 (01:58→17:56)
[2019-01-13] MEDS: POTASSIUM CHLORIDE IV SCH ×2 (01:58→17:56)
[2019-01-13] MEDS: SODIUM BICARB IV SCH ×2 (01:58→17:56)
[2019-01-13] MEDS: ALBUTEROL/IPRATROPIUM 3 ML NEB RESP TX SCH ×4 (02:35→14:50)
[2019-01-13 03:29] LABS: ABG Base Excess -2.6 MMOL/L (-2.5-2.5); ABG HCO3 22.3 MMOL/L (20-26); ABG Oxygen Saturation 99.5 % (95-100); ABG PCO2 33.6 MM HG (35-48); Allen Test Positive; Pt O2 Delivery Device Ventilator
[2019-01-13 03:59] LABS: Hematocrit 29.8 VOL% (35.7-47.0); Hemoglobin 9.7 GM/DL (12.0-16.0); Immature Granulocytes % 1.9 %; Immature Granulocytes Absolute 0.21 #; Lymphocytes # 0.3 10*3/uL (1.4-4.0); Lymphocytes % 2.9 % (21.3-54.2); Mean Corpuscular HGB Conc 32.6 GM/DL (32-36); Mean Corpuscular Volume 93.4 FL (87-102); Mean Platelet Volume 10.3 FL (9.6-12.0); Monocytes % 2.1 % (1.7-12.7); NRBC # 0.02 10*3/uL; Neutrophils % 93.1 % (38.7-73.9); Platelet Count 142 T/CUMM (130-400); Red Blood Count 3.19 MC/CUMM (3.8-5.5); Red Cell Distribution Width 15.1 % (9.3-17.3); White Blood Count 11.3 T/CUMM (4-12)
[2019-01-13 04:23] LABS: Calcium 6.7 MG/DL (8.5-10.1); Osmolality,Calculated 296.1 MOS/KG (273-304)
[2019-01-13 04:40] LABS: Prealbumin 14.8 MG/DL (20-40)
[2019-01-13 04:41] LABS: Band Neutrophils 1 % (0-10); Hypochromasia Slight; Lymphocytes 1 % (20-55); Microcytosis Slight; Nucleated Red Blood Cells 1 (0-5); Segmented Neutrophils 96 % (50-85); Total Cells Counted 100
[2019-01-13 04:42] LABS: Acanthocytes Few; Burr Cells Slight; Platelet Estimate Adequate
[2019-01-13] MEDS: INSULIN REGULAR 100 UNIT/ML SUBCUT SCH ×4 (05:40→23:10)
[2019-01-13] MEDS: LEVOTHYROXINE 88 MCG TABLET PO SCH (05:40)
[2019-01-13] MEDS: MAGNESIUM SULF RIDER 2 GM in PREMIX 1 EACH IV PRN (05:42)
[2019-01-13] MEDS: PROPOFOL 1,000 MG/100 ML BOTTLE IV SCH ×3 (05:50→17:56)
[2019-01-13] MEDS: SODIUM BICARB INJ 50 MEQ in DEXTROSE 5% NACL 0.45% 1,000 ML IV SCH (07:25)
[2019-01-13] MEDS: MAGNESIUM OXIDE 400 MG TABLET PO SCH (09:14)
[2019-01-13] MEDS: LANSOPRAZOLE ODT 30 MG TABLET PER TUBE SCH ×2 (09:14→21:16)
[2019-01-13] MEDS: AMIODARONE 200 MG TABLET PO SCH ×2 (09:14→21:16)
[2019-01-13] MEDS: ALLOPURINOL 100 MG TABLET PO SCH (09:15)
[2019-01-13] MEDS: POLYETHYLENE GLYCOL POWDER 17 GM PACK PO SCH ×3 (09:15→21:09)
[2019-01-13] MEDS: CHOLECALCIFEROL 1,000 UNIT TABLET PO SCH (09:15)
[2019-01-13] MEDS: ASCORBIC ACID 500 MG TABLET PO SCH ×2 (09:15→21:16)
[2019-01-13] MEDS: CYANOCOBALAMIN 500 MCG TABLET PO SCH (09:15)
[2019-01-13] MEDS ORDERED: METOPROLOL TARTRATE 25 MG TABLET PO SCH (11:22)
[2019-01-13] MEDS: POTASSIUM CHLORIDE 20 MEQ/15 ML UDCUP PER TUBE SCH ×3 (14:41→21:16)
[2019-01-13] MEDS: METOPROLOL TARTRATE 25 MG TABLET PO SCH ×2 (18:13→22:56)
[2019-01-13] MEDS: ATORVASTATIN 80 MG TABLET PO SCH (21:16)
[2019-01-13] MEDS: EZETIMIBE 10 MG TABLET PO SCH (21:16)
[2019-01-13] MEDS: ZALEPLON 5 MG CAPSULE PO PRN (22:56)
[2019-01-14] MEDS: methylPREDNISolone SOD SUC 40 MG/1 ML VIAL IV SCH ×3 (01:10→16:46)
[2019-01-14] MEDS: PIPERACILLIN/TAZOBACTAM 2,250 MG in SODIUM CHLORIDE 0.9% 100 ML IV SCH ×3 (01:10→16:48)
[2019-01-14 03:17] LABS: ABG HCO3 24.5 MMOL/L (20-26); ABG Oxygen Saturation 99.5 % (95-100); ABG PCO2 37.1 MM HG (35-48); ABG PH 7.422 (7.35-7.45); ABG TCO2 21.9 MMOL/L (23-27); Allen Test Positive; Pt O2 Delivery Device Ventilator
[2019-01-14] MEDS: PROPOFOL 1,000 MG/100 ML BOTTLE IV SCH ×3 (05:24→18:25)
[2019-01-14] MEDS: METOPROLOL TARTRATE 25 MG TABLET PO SCH ×2 (05:24→09:31)
[2019-01-14] MEDS: INSULIN REGULAR 100 UNIT/ML SUBCUT SCH ×4 (05:24→23:38)
[2019-01-14] MEDS: LEVOTHYROXINE 88 MCG TABLET PO SCH (05:30)
[2019-01-14 05:50] LABS: Calcium 7.5 MG/DL (8.5-10.1)
[2019-01-14] MEDS: CYANOCOBALAMIN 500 MCG TABLET PO SCH (09:10)
[2019-01-14] MEDS: AMIODARONE 200 MG TABLET PO SCH ×2 (09:13→21:21)
[2019-01-14] MEDS: ASCORBIC ACID 500 MG TABLET PO SCH ×2 (09:13→21:21)
[2019-01-14] MEDS: MAGNESIUM OXIDE 400 MG TABLET PO SCH (09:13)
[2019-01-14] MEDS: ALLOPURINOL 100 MG TABLET PO SCH (09:13)
[2019-01-14] MEDS: LANSOPRAZOLE ODT 30 MG TABLET PER TUBE SCH ×2 (09:14→21:21)
[2019-01-14] MEDS: POLYETHYLENE GLYCOL POWDER 17 GM PACK PO SCH ×3 (09:14→20:06)
[2019-01-14] MEDS ORDERED: VANCOMYCIN INJ 1,000 MG in SODIUM CHLORIDE 0.9% 250 ML IV SCH (10:00)
[2019-01-14] MEDS ORDERED: NOREPINEPHRINE 8 MG in SODIUM CHLORIDE 0.9% 234 ML IV PRN (10:32)
[2019-01-14] MEDS ORDERED: NOREPINEPHRINE 4 MG/4 ML VIAL IV ONE (10:33)
[2019-01-14] MEDS ORDERED: NOREPINEPHRINE 16 MG in SODIUM CHLORIDE 0.9% 234 ML IV PRN (11:00)
[2019-01-14] MEDS: DEXTROSE 5% IV SCH (12:03)
[2019-01-14] MEDS: SODIUM BICARB IV SCH (12:03)
[2019-01-14] MEDS: POTASSIUM CHLORIDE IV SCH (12:03)
[2019-01-14 13:11] LABS: Basophils # 0.1 10*3/uL (0.0-0.2); Basophils % 0.2 % (0.0-0.8); Hematocrit 38.6 VOL% (35.7-47.0); Hemoglobin 11.9 GM/DL (12.0-16.0); Immature Granulocytes % 4.5 %; Immature Granulocytes Absolute 0.98 #; Lymphocytes # 3.4 10*3/uL (1.4-4.0); Lymphocytes % 15.9 % (21.3-54.2); Mean Corpuscular HGB Conc 30.8 GM/DL (32-36); Mean Corpuscular Volume 99.5 FL (87-102); Mean Platelet Volume 10.7 FL (9.6-12.0); Monocytes % 2.1 % (1.7-12.7); NRBC # 0.12 10*3/uL; Neutrophils % 77.3 % (38.7-73.9); Platelet Count 163 T/CUMM (130-400); Red Blood Count 3.88 MC/CUMM (3.8-5.5); Red Cell Distribution Width 15.8 % (9.3-17.3); White Blood Count 21.6 T/CUMM (4-12)
[2019-01-14] MEDS: fentaNYL INJ 1,250 MCG in SODIUM CHLORIDE 0.9% 225 ML IV PRN (13:22)
[2019-01-14 13:25] LABS: ABG Base Excess -0.6 MMOL/L (-2.5-2.5); ABG HCO3 23.9 MMOL/L (20-26); ABG PCO2 30.4 MM HG (35-48); ABG PH 7.471 (7.35-7.45); ABG TCO2 19.9 MMOL/L (23-27)
[2019-01-14 13:40] LABS: Band Neutrophils 1 % (0-10); Lymphocytes 16 % (20-55); Nucleated Red Blood Cells 1 (0-5); Segmented Neutrophils 82 % (50-85); Total Cells Counted 100
[2019-01-14 13:41] LABS: Anisocytosis Slight; Burr Cells Few; Elliptocytes Few; Poikilocytosis Few
[2019-01-14 13:42] LABS: Platelet Estimate Adequate
[2019-01-14 13:44] LABS: Blood Urea Nitrogen 47 MG/DL (7-18); Calcium 7.5 MG/DL (8.5-10.1); Estimated Glom Filtration Rate 18 ML/MIN; Glucose 264 MG/DL (74-106); Osmolality,Calculated 301.3 MOS/KG (273-304)
[2019-01-14 13:45] LABS: Troponin I 0.615 NG/ML (0.00-0.045)
[2019-01-14] MEDS: EZETIMIBE 10 MG TABLET PO SCH (21:21)
[2019-01-14] MEDS: ATORVASTATIN 80 MG TABLET PO SCH (21:21)
[2019-01-14 22:04] LABS: CKMB % 6.5 %
[2019-01-14 22:07] LABS: Troponin I 7.52 NG/ML (0.00-0.045)
[2019-01-14] MEDS ORDERED: ENOXAPARIN 100 MG/ML SYRINGE SUBCUT SCH ×2 (22:30→23:00)
[2019-01-15 01:06] LABS: CKMB % 6.3 %
[2019-01-15 01:08] LABS: Troponin I 8.77 NG/ML (0.00-0.045)
[2019-01-15] MEDS: methylPREDNISolone SOD SUC 40 MG/1 ML VIAL IV SCH ×3 (01:41→17:30)
[2019-01-15] MEDS: PIPERACILLIN/TAZOBACTAM 2,250 MG in SODIUM CHLORIDE 0.9% 100 ML IV SCH ×2 (01:42→09:30)
[2019-01-15 03:15] LABS: ABG Base Excess 0.5 MMOL/L (-2.5-2.5); ABG HCO3 22.1 MMOL/L (20-26); ABG PCO2 26.3 MM HG (35-48); ABG PH 7.542 (7.35-7.45); ABG PO2 367.7 MM HG (80-95); ABG TCO2 22.9 MMOL/L (23-27)
[2019-01-15 03:18] LABS: Basophils % 0.1 % (0.0-0.8); Hematocrit 30.1 VOL% (35.7-47.0); Hemoglobin 9.9 GM/DL (12.0-16.0); Immature Granulocytes % 2.1 %; Immature Granulocytes Absolute 0.37 #; Lymphocytes # 0.7 10*3/uL (1.4-4.0); Lymphocytes % 4.2 % (21.3-54.2); Mean Corpuscular HGB Conc 32.9 GM/DL (32-36); Mean Corpuscular Volume 93.5 FL (87-102); NRBC # 0.11 10*3/uL; Neutrophils % 89.6 % (38.7-73.9); Platelet Count 139 T/CUMM (130-400); Red Blood Count 3.22 MC/CUMM (3.8-5.5); Red Cell Distribution Width 15.3 % (9.3-17.3); White Blood Count 17.3 T/CUMM (4-12)
[2019-01-15 03:40] LABS: Lymphocytes 7 % (20-55); Segmented Neutrophils 91 % (50-85); Total Cells Counted 100
[2019-01-15] MEDS: DEXTROSE 5% IV SCH (03:40)
[2019-01-15] MEDS: POTASSIUM CHLORIDE IV SCH (03:40)
[2019-01-15] MEDS: SODIUM BICARB IV SCH (03:40)
[2019-01-15 03:42] LABS: Calcium 7.5 MG/DL (8.5-10.1); Osmolality,Calculated 303.3 MOS/KG (273-304)
[2019-01-15 03:45] LABS: CKMB % 5.9 %
[2019-01-15 03:47] LABS: Troponin I 8.4 NG/ML (0.00-0.045)
[2019-01-15 03:54] LABS: Burr Cells 2+; Elliptocytes 1+; Hypochromasia Slight; Platelet Estimate Normal
[2019-01-15 03:56] LABS: Polychromasia Few
[2019-01-15 04:26] LABS: Prealbumin 26.9 MG/DL (20-40)
[2019-01-15 06:53] LABS: CKMB % 4.8 %
[2019-01-15 06:54] LABS: Troponin I 7.78 NG/ML (0.00-0.045)
[2019-01-15] MEDS: PROPOFOL 1,000 MG/100 ML BOTTLE IV SCH ×2 (07:05→19:15)
[2019-01-15] MEDS: LEVOTHYROXINE 88 MCG TABLET PO SCH (07:05)
[2019-01-15] MEDS: INSULIN REGULAR 100 UNIT/ML SUBCUT SCH ×3 (07:13→18:17)
[2019-01-15] MEDS: POLYETHYLENE GLYCOL POWDER 17 GM PACK PO SCH ×3 (09:38→20:25)
[2019-01-15] MEDS: ALLOPURINOL 100 MG TABLET PO SCH (09:38)
[2019-01-15] MEDS: AMIODARONE 200 MG TABLET PO SCH (09:38)
[2019-01-15] MEDS: ASCORBIC ACID 500 MG TABLET PO SCH ×2 (09:38→20:24)
[2019-01-15] MEDS: CYANOCOBALAMIN 500 MCG TABLET PO SCH (09:38)
[2019-01-15] MEDS: LANSOPRAZOLE ODT 30 MG TABLET PER TUBE SCH ×2 (09:38→20:25)
[2019-01-15] MEDS: MAGNESIUM OXIDE 400 MG TABLET PO SCH (09:50)
[2019-01-15] MEDS: CHOLECALCIFEROL 1,000 UNIT TABLET PO SCH (09:57)
[2019-01-15] MEDS ORDERED: EPINEPHrine 1 MG/10 ML SYRINGE ONE (09:57)
[2019-01-15] MEDS: METOPROLOL TARTRATE 25 MG TABLET PO SCH ×2 (11:51→20:25)
[2019-01-15] MEDS: ASPIRIN EC 81 MG TABLET PO SCH (12:14)
[2019-01-15] MEDS: SUCRALFATE 1 GM TABLET NG SCH ×3 (12:14→20:25)
[2019-01-15 15:49] LABS: Basophils % 0.1 % (0.0-0.8); Hemoglobin 9.1 GM/DL (12.0-16.0); Immature Granulocytes % 1.2 %; Lymphocytes # 0.6 10*3/uL (1.4-4.0); Lymphocytes % 3.4 % (21.3-54.2); Mean Corpuscular HGB Conc 32.5 GM/DL (32-36); Mean Corpuscular Volume 94.6 FL (87-102); Monocytes % 3.1 % (1.7-12.7); NRBC # 0.03 10*3/uL; Neutrophils % 92.2 % (38.7-73.9); Red Blood Count 2.96 MC/CUMM (3.8-5.5); Red Cell Distribution Width 15.3 % (9.3-17.3); White Blood Count 16.1 T/CUMM (4-12)
[2019-01-15 15:53] LABS: Platelet Count 107 T/CUMM (130-400)
[2019-01-15 16:08] LABS: Apearance,Urine CLEAR (Clear); Bilirubin,Urine Negative (Negative); Blood, Urine Small mg/dL (Negative); Calcium Oxalate Crystals,Urine Occasional /HPF (Few); Glucose,Urine (UA) Negative (Negative); Ketones,Urine Negative (Negative); Nitrite,Urine Negative (Negative); Protein,Urine 100 MG/DL; RBC,Urine 36 /HPF (0-4); Squamous Epithelial Cell,Urine Occasional /HPF (0-10); Transitional Epi Cells,Urine Occasional /HPF (<1); Urine Color Amber (Yellow); Urine Specific Gravity 1.015 (1.001-1.035); Urine Urobilinogen < 2.0 EU/DL (0.2-1.0); WBC,Urine 12 /HPF (0-6)
[2019-01-15 17:12] LABS: Band Neutrophils 2 % (0-10); Lymphocytes 4 % (20-55); Nucleated Red Blood Cells 1 (0-5); Segmented Neutrophils 92 % (50-85); Total Cells Counted 100
[2019-01-15 17:13] LABS: Anisocytosis Slight; Burr Cells Few; Elliptocytes Few; Macrocytosis Slight; Platelet Estimate Decreased; Reactive Lymphocytes Slight
[2019-01-15] MEDS: EZETIMIBE 10 MG TABLET PO SCH (20:24)
[2019-01-15] MEDS: ATORVASTATIN 80 MG TABLET PO SCH (20:25)
[2019-01-16] MEDS: methylPREDNISolone SOD SUC 40 MG/1 ML VIAL IV SCH ×2 (00:19→08:37)
[2019-01-16] MEDS: INSULIN REGULAR 100 UNIT/ML SUBCUT SCH ×4 (00:19→17:38)
[2019-01-16] MEDS: fentaNYL INJ 1,250 MCG in SODIUM CHLORIDE 0.9% 225 ML IV PRN (01:58)
[2019-01-16 04:56] LABS: ABG Base Excess 1.8 MMOL/L (-2.5-2.5); ABG Oxygen Saturation 99.6 % (95-100); ABG PCO2 34.8 MM HG (35-48); ABG PH 7.469 (7.35-7.45); ABG TCO2 23.1 MMOL/L (23-27)
[2019-01-16 05:03] LABS: Basophils % 0.1 % (0.0-0.8); Hematocrit 29.2 VOL% (35.7-47.0); Hemoglobin 9.3 GM/DL (12.0-16.0); Immature Granulocytes % 1.7 %; Immature Granulocytes Absolute 0.37 #; Lymphocytes # 0.7 10*3/uL (1.4-4.0); Lymphocytes % 3.4 % (21.3-54.2); Mean Corpuscular HGB Conc 31.8 GM/DL (32-36); Mean Corpuscular Volume 94.8 FL (87-102); Monocytes % 3.1 % (1.7-12.7); NRBC # 0.03 10*3/uL; Neutrophils % 91.7 % (38.7-73.9); Platelet Count 127 T/CUMM (130-400); Red Blood Count 3.08 MC/CUMM (3.8-5.5); Red Cell Distribution Width 14.9 % (9.3-17.3); White Blood Count 21.9 T/CUMM (4-12)
[2019-01-16 05:15] LABS: Calcium 8.5 MG/DL (8.5-10.1)
[2019-01-16 05:24] LABS: Lymphocytes 4 % (20-55); Segmented Neutrophils 93 % (50-85); Total Cells Counted 100
[2019-01-16 05:25] LABS: Platelet Estimate Decreased
[2019-01-16] MEDS: LEVOTHYROXINE 88 MCG TABLET PO SCH (06:25)
[2019-01-16] MEDS: PROPOFOL 1,000 MG/100 ML BOTTLE IV SCH ×3 (06:43→22:00)
[2019-01-16] MEDS: MORPHINE 4 MG/1 ML VIAL IV PRN ×4 (07:38→18:14)
[2019-01-16] MEDS: SUCRALFATE 1 GM TABLET NG SCH ×4 (07:38→21:04)
[2019-01-16] MEDS: ASPIRIN EC 81 MG TABLET PO SCH (08:37)
[2019-01-16] MEDS: POLYETHYLENE GLYCOL POWDER 17 GM PACK PO SCH ×3 (08:37→21:05)
[2019-01-16] MEDS: LANSOPRAZOLE ODT 30 MG TABLET PER TUBE SCH ×2 (08:37→21:05)
[2019-01-16] MEDS: METOPROLOL TARTRATE 25 MG TABLET PO SCH ×2 (08:38→21:05)
[2019-01-16] MEDS: ASCORBIC ACID 500 MG TABLET PO SCH ×2 (08:38→21:05)
[2019-01-16] MEDS: ALLOPURINOL 100 MG TABLET PO SCH (08:38)
[2019-01-16] MEDS: CYANOCOBALAMIN 500 MCG TABLET PO SCH (08:38)
[2019-01-16] MEDS: MAGNESIUM OXIDE 400 MG TABLET PO SCH (08:39)
[2019-01-16] MEDS: AMIODARONE 200 MG TABLET PO SCH (08:39)
[2019-01-16] MEDS ORDERED: SODIUM POLYSTYRENE SULFATE 15 GM/60 ML BOTTLE PO ONE (11:03)
[2019-01-16] MEDS: ALBUMIN 25% 25 GM in PREMIX 1 EACH IV SCH (11:47)
[2019-01-16] MEDS: PIPERACILLIN/TAZOBACTAM 3,375 MG in SODIUM CHLORIDE 0.9% 100 ML IV SCH ×2 (11:48→13:12)
[2019-01-16] MEDS: MENTHOL/ZINC OXIDE OINT 71 GM JAR TOP SCH ×2 (15:07→21:04)
[2019-01-16] MEDS: EZETIMIBE 10 MG TABLET PO SCH (21:05)
[2019-01-16] MEDS: ATORVASTATIN 80 MG TABLET PO SCH (21:05)
[2019-01-17] MEDS: PIPERACILLIN/TAZOBACTAM 3,375 MG in SODIUM CHLORIDE 0.9% 100 ML IV SCH ×2 (00:40→12:48)
[2019-01-17] MEDS: ALBUMIN 25% 25 GM in PREMIX 1 EACH IV SCH ×2 (00:40→14:06)
[2019-01-17] MEDS: INSULIN REGULAR 100 UNIT/ML SUBCUT SCH ×4 (01:55→18:13)
[2019-01-17] MEDS: MORPHINE 4 MG/1 ML VIAL IV PRN (02:53)
[2019-01-17 04:24] LABS: Pt O2 Delivery Device Ventilator
[2019-01-17 04:25] LABS: ABG Base Excess 1.9 MMOL/L (-2.5-2.5); ABG HCO3 26.1 MMOL/L (20-26); ABG Oxygen Saturation 99.5 % (95-100); ABG PH 7.469 (7.35-7.45); ABG TCO2 23.9 MMOL/L (23-27)
[2019-01-17 04:57] LABS: Basophils % 0.1 % (0.0-0.8); Eosinophils % 0.1 % (0.00-10.9); Hematocrit 22.7 VOL% (35.7-47.0); Immature Granulocytes % 2.6 %; Immature Granulocytes Absolute 0.45 #; Lymphocytes # 0.6 10*3/uL (1.4-4.0); Lymphocytes % 3.6 % (21.3-54.2); Mean Corpuscular HGB Conc 31.7 GM/DL (32-36); Mean Corpuscular Volume 95.4 FL (87-102); Mean Platelet Volume 11.3 FL (9.6-12.0); Monocytes % 3.8 % (1.7-12.7); NRBC # 0.05 10*3/uL; Neutrophils % 89.8 % (38.7-73.9); Platelet Count 104 T/CUMM (130-400); Red Cell Distribution Width 14.8 % (9.3-17.3); White Blood Count 17.4 T/CUMM (4-12)
[2019-01-17 04:58] LABS: Red Blood Count 2.38 MC/CUMM (3.8-5.5)
[2019-01-17 04:59] LABS: Hemoglobin 7.2 GM/DL (12.0-16.0)
[2019-01-17 05:03] LABS: PT Patient Result 10.5 SECS (9.6-12.2)
[2019-01-17 05:04] LABS: Calcium 8.8 MG/DL (8.5-10.1)
[2019-01-17 05:23] LABS: Lymphocytes 1 % (20-55); Platelet Estimate Adequate; Segmented Neutrophils 99 % (50-85); Total Cells Counted 100
[2019-01-17 05:24] LABS: Polychromasia Slight
[2019-01-17] MEDS: LEVOTHYROXINE 88 MCG TABLET PO SCH ×2 (06:41→11:02)
[2019-01-17] MEDS: PROPOFOL 1,000 MG/100 ML BOTTLE IV SCH ×5 (06:42→23:08)
[2019-01-17] MEDS ORDERED: LACTATED RINGERS 1,000 ML IV SCH (08:00)
[2019-01-17] MEDS ORDERED: BUPIVACAINE MPF 0.25% 30 ML VIAL ONE (09:35)
[2019-01-17] MEDS ORDERED: LIDOCAINE 1%/EPI INJ 20 ML VIAL ONE (09:35)
[2019-01-17] MEDS ORDERED: HEPARIN 5,000 UNIT/1 ML VIAL ONE (09:35)
[2019-01-17] MEDS ORDERED: ceFAZolin 1,000 MG VIAL ONE (09:37)
[2019-01-17] MEDS ORDERED: SODIUM CHLORIDE 0.9% 1,000 ML IV PRN ×3 (10:26→18:00)
[2019-01-17] MEDS ORDERED: ROCURONIUM 100 MG/10 ML VIAL IV ONE (10:32)
[2019-01-17] MEDS ORDERED: MIDAZOLAM 2 MG/2 ML VIAL ONE (10:32)
[2019-01-17] MEDS: LANSOPRAZOLE ODT 30 MG TABLET PER TUBE SCH ×2 (11:01→21:59)
[2019-01-17] MEDS: AMIODARONE 200 MG TABLET PO SCH (11:01)
[2019-01-17] MEDS: METOPROLOL TARTRATE 25 MG TABLET PO SCH ×2 (11:01→21:59)
[2019-01-17] MEDS: predniSONE 20 MG TABLET PO SCH (11:02)
[2019-01-17] MEDS: SUCRALFATE 1 GM TABLET NG SCH ×4 (11:02→21:58)
[2019-01-17] MEDS: CYANOCOBALAMIN 500 MCG TABLET PO SCH (11:03)
[2019-01-17] MEDS: MAGNESIUM OXIDE 400 MG TABLET PO SCH (11:03)
[2019-01-17] MEDS: POLYETHYLENE GLYCOL POWDER 17 GM PACK PO SCH ×3 (11:03→21:59)
[2019-01-17] MEDS: ASPIRIN EC 81 MG TABLET PO SCH (11:03)
[2019-01-17] MEDS: ASCORBIC ACID 500 MG TABLET PO SCH ×2 (11:04→21:59)
[2019-01-17] MEDS: CHOLECALCIFEROL 1,000 UNIT TABLET PO SCH (11:04)
[2019-01-17 11:21] LABS: Hematocrit 22.5 VOL% (35.7-47.0); Hemoglobin 7.2 GM/DL (12.0-16.0)
[2019-01-17 11:32] LABS: PT Patient Result 10.7 SECS (9.6-12.2); Partial Thromboplastin Time 27.5 SECS (20.8-36.0)
[2019-01-17] MEDS: MENTHOL/ZINC OXIDE OINT 71 GM JAR TOP SCH ×2 (14:19→21:58)
[2019-01-17] MEDS: ALLOPURINOL 100 MG TABLET PO SCH (14:24)
[2019-01-17 16:53] LABS: Hematocrit 23.1 VOL% (35.7-47.0); Hemoglobin 7.4 GM/DL (12.0-16.0)
[2019-01-17] MEDS: ATORVASTATIN 80 MG TABLET PO SCH (21:59)
[2019-01-17] MEDS: EZETIMIBE 10 MG TABLET PO SCH (22:00)
[2019-01-18] MEDS: INSULIN REGULAR 100 UNIT/ML SUBCUT SCH ×4 (00:14→18:04)
[2019-01-18] MEDS ORDERED: hydrALAZINE 20 MG/1 ML VIAL ONE (00:42)
[2019-01-18] MEDS: hydrALAZINE 20 MG/1 ML VIAL IV PRN (00:44)
[2019-01-18] MEDS: ALBUMIN 25% 25 GM in PREMIX 1 EACH IV SCH ×2 (02:33→11:45)
[2019-01-18] MEDS: PROPOFOL 1,000 MG/100 ML BOTTLE IV SCH ×3 (03:01→12:25)
[2019-01-18] MEDS: PIPERACILLIN/TAZOBACTAM 3,375 MG in SODIUM CHLORIDE 0.9% 100 ML IV SCH ×2 (03:06→12:25)
[2019-01-18 03:48] LABS: ABG Base Excess 1.1 MMOL/L (-2.5-2.5); ABG HCO3 25.4 MMOL/L (20-26); ABG Oxygen Saturation 99.7 % (95-100); ABG PCO2 30.4 MM HG (35-48); ABG PH 7.502 (7.35-7.45); ABG TCO2 21.9 MMOL/L (23-27); Allen Test Positive; Pt O2 Delivery Device Ventilator
[2019-01-18 04:52] LABS: Basophils % 0.1 % (0.0-0.8); Hematocrit 23.3 VOL% (35.7-47.0); Immature Granulocytes Absolute 0.25 #; Lymphocytes # 0.4 10*3/uL (1.4-4.0); Lymphocytes % 3.1 % (21.3-54.2); Mean Corpuscular HGB Conc 34.3 GM/DL (32-36); Mean Corpuscular Volume 90.7 FL (87-102); Mean Platelet Volume 10.8 FL (9.6-12.0); Monocytes % 3.4 % (1.7-12.7); NRBC # 0.02 10*3/uL; Neutrophils % 91.4 % (38.7-73.9); Platelet Count 105 T/CUMM (130-400); Red Blood Count 2.57 MC/CUMM (3.8-5.5); Red Cell Distribution Width 15.5 % (9.3-17.3); White Blood Count 12.7 T/CUMM (4-12)
[2019-01-18 05:18] LABS: Hypochromasia 1+; Lymphocytes 3 % (20-55); Ovalocytes Slight; Platelet Estimate Decreased; Segmented Neutrophils 95 % (50-85); Total Cells Counted 100
[2019-01-18 05:19] LABS: Calcium 8.7 MG/DL (8.5-10.1)
[2019-01-18 05:23] LABS: Prealbumin 19.8 MG/DL (20-40)
[2019-01-18] MEDS: LEVOTHYROXINE 88 MCG TABLET PO SCH (05:45)
[2019-01-18] MEDS: SUCRALFATE 1 GM TABLET NG SCH ×4 (07:38→21:40)
[2019-01-18] MEDS: CYANOCOBALAMIN 500 MCG TABLET PO SCH (08:09)
[2019-01-18] MEDS: MAGNESIUM OXIDE 400 MG TABLET PO SCH (08:09)
[2019-01-18] MEDS: predniSONE 20 MG TABLET PO SCH (08:09)
[2019-01-18] MEDS: ASCORBIC ACID 500 MG TABLET PO SCH ×2 (08:09→21:40)
[2019-01-18] MEDS: MENTHOL/ZINC OXIDE OINT 71 GM JAR TOP SCH ×2 (08:09→21:41)
[2019-01-18] MEDS: LANSOPRAZOLE ODT 30 MG TABLET PER TUBE SCH ×2 (08:09→21:40)
[2019-01-18] MEDS: POLYETHYLENE GLYCOL POWDER 17 GM PACK PO SCH ×3 (08:09→21:40)
[2019-01-18] MEDS: AMIODARONE 200 MG TABLET PO SCH (08:09)
[2019-01-18 09:47] LABS: Albumin 2.8 G/DL (3.4-5.0); Bilirubin,Total 0.99 MG/DL (0.2-1.0); Calcium 8.8 MG/DL (8.5-10.1); Total Protein 4.8 G/DL (6.4-8.3)
[2019-01-18] MEDS ORDERED: SODIUM CHLORIDE 0.9% 1,000 ML IV PRN ×2 (10:12→17:00)
[2019-01-18 13:08] LABS: Eosinophils % 0.2 % (0.00-10.9); Hematocrit 19.4 VOL% (35.7-47.0); Hemoglobin 6.5 GM/DL (12.0-16.0); Immature Granulocytes Absolute 0.24 #; Lymphocytes # 0.5 10*3/uL (1.4-4.0); Lymphocytes % 4.1 % (21.3-54.2); Mean Corpuscular HGB Conc 33.5 GM/DL (32-36); Mean Corpuscular Volume 90.2 FL (87-102); Mean Platelet Volume 11.3 FL (9.6-12.0); Monocytes % 4.2 % (1.7-12.7); NRBC # 0.02 10*3/uL; Neutrophils % 89.5 % (38.7-73.9); Platelet Count 91 T/CUMM (130-400); Red Blood Count 2.15 MC/CUMM (3.8-5.5); Red Cell Distribution Width 15.8 % (9.3-17.3); White Blood Count 12.3 T/CUMM (4-12)
[2019-01-18 13:29] LABS: Anisocytosis 2+; Band Neutrophils 1 % (0-10); Hypersegmented Neutrophil Few; Lymphocytes 1 % (20-55); Platelet Estimate Decreased; Polychromasia Slight; Segmented Neutrophils 96 % (50-85); Total Cells Counted 100
[2019-01-18 13:30] LABS: Poikilocytosis Slight
[2019-01-18] MEDS ORDERED: MICROFIBRILLAR COLLAGEN POWDER 1 GM CAN TOP ONE (14:10)
[2019-01-18] MEDS ORDERED: SEVOFLURANE 1 UNIT/15 MINUTE INH ONE (14:59)
[2019-01-18] MEDS ORDERED: SODIUM CHLORIDE 0.9% 1,000 ML IV ONE (15:00)
[2019-01-18] MEDS ORDERED: CISATRACURIUM 10 MG/5 ML VIAL IV ONE (15:00)
[2019-01-18 15:37] LABS: Hematocrit 23.2 VOL% (35.7-47.0); Hemoglobin 7.8 GM/DL (12.0-16.0); Platelet Count 86 T/CUMM (130-400)
[2019-01-18 15:45] LABS: Partial Thromboplastin Time 28.3 SECS (20.8-36.0)
[2019-01-18] MEDS ORDERED: FUROSEMIDE 40 MG/4 ML VIAL IV SCH (16:00)
[2019-01-18] MEDS: FUROSEMIDE 40 MG/4 ML VIAL IV SCH (16:44)
[2019-01-18 21:22] LABS: Hematocrit 30.3 VOL% (35.7-47.0); Hemoglobin 10.2 GM/DL (12.0-16.0)
[2019-01-18] MEDS: EZETIMIBE 10 MG TABLET PO SCH (21:40)
[2019-01-18] MEDS: ATORVASTATIN 80 MG TABLET PO SCH (21:40)
[2019-01-19] MEDS: INSULIN REGULAR 100 UNIT/ML SUBCUT SCH ×4 (00:09→18:11)
[2019-01-19] MEDS: ALBUMIN 25% 25 GM in PREMIX 1 EACH IV SCH ×3 (01:35→22:48)
[2019-01-19] MEDS: PROPOFOL 1,000 MG/100 ML BOTTLE IV SCH ×3 (02:10→19:49)
[2019-01-19] MEDS: PIPERACILLIN/TAZOBACTAM 3,375 MG in SODIUM CHLORIDE 0.9% 100 ML IV SCH ×3 (02:41→22:48)
[2019-01-19 04:10] LABS: ABG Base Excess 0.1 MMOL/L (-2.5-2.5); ABG HCO3 24.5 MMOL/L (20-26); ABG Oxygen Saturation 99.9 % (95-100); ABG PCO2 41.2 MM HG (35-48); ABG PH 7.391 (7.35-7.45); ABG TCO2 23.2 MMOL/L (23-27); Allen Test Positive; Pt O2 Delivery Device Ventilator
[2019-01-19 04:16] LABS: Basophils % 0.1 % (0.0-0.8); Eosinophils % 0.2 % (0.00-10.9); Hematocrit 24.8 VOL% (35.7-47.0); Hemoglobin 8.2 GM/DL (12.0-16.0); Immature Granulocytes % 1.3 %; Immature Granulocytes Absolute 0.23 #; Lymphocytes # 0.4 10*3/uL (1.4-4.0); Lymphocytes % 2.2 % (21.3-54.2); Mean Corpuscular HGB Conc 33.1 GM/DL (32-36); Mean Corpuscular Volume 90.2 FL (87-102); Mean Platelet Volume 11.3 FL (9.6-12.0); Monocytes % 3.9 % (1.7-12.7); NRBC # 0.02 10*3/uL; Neutrophils % 92.3 % (38.7-73.9); Platelet Count 78 T/CUMM (130-400); Red Blood Count 2.75 MC/CUMM (3.8-5.5); Red Cell Distribution Width 15.9 % (9.3-17.3); White Blood Count 17.9 T/CUMM (4-12)
[2019-01-19 04:36] LABS: Albumin 3.8 G/DL (3.4-5.0); Bilirubin,Total 0.7 MG/DL (0.2-1.0); Calcium 9.4 MG/DL (8.5-10.1); Osmolality,Calculated 313.1 MOS/KG (273-304); Total Protein 5.9 G/DL (6.4-8.3)
[2019-01-19 04:55] LABS: Hypochromasia 1+; Lymphocytes 1 % (20-55); Ovalocytes Slight; Platelet Estimate Decreased; Segmented Neutrophils 94 % (50-85); Total Cells Counted 100
[2019-01-19] MEDS: LEVOTHYROXINE 88 MCG TABLET PO SCH (05:48)
[2019-01-19 09:41] LABS: Basophils % 0.1 % (0.0-0.8); Eosinophils # 0.1 10*3/uL (0.0-0.87); Eosinophils % 0.3 % (0.00-10.9); Hematocrit 31.7 VOL% (35.7-47.0); Hemoglobin 10.7 GM/DL (12.0-16.0); Immature Granulocytes % 1.3 %; Immature Granulocytes Absolute 0.26 #; Lymphocytes # 0.5 10*3/uL (1.4-4.0); Lymphocytes % 2.3 % (21.3-54.2); Mean Corpuscular HGB Conc 33.8 GM/DL (32-36); Mean Corpuscular Volume 89.5 FL (87-102); Mean Platelet Volume 11.5 FL (9.6-12.0); Monocytes % 3.6 % (1.7-12.7); NRBC # 0.02 10*3/uL; Neutrophils % 92.4 % (38.7-73.9); Platelet Count 80 T/CUMM (130-400); Red Blood Count 3.54 MC/CUMM (3.8-5.5); Red Cell Distribution Width 15.4 % (9.3-17.3); White Blood Count 19.5 T/CUMM (4-12)
[2019-01-19 09:46] LABS: INR 0.9; PT Patient Result 10.2 SECS (9.6-12.2)
[2019-01-19] MEDS: AMIODARONE 200 MG TABLET PO SCH (09:46)
[2019-01-19] MEDS: CHOLECALCIFEROL 1,000 UNIT TABLET PO SCH (09:46)
[2019-01-19] MEDS: SUCRALFATE 1 GM TABLET NG SCH ×4 (09:46→20:17)
[2019-01-19] MEDS: MAGNESIUM OXIDE 400 MG TABLET PO SCH (09:46)
[2019-01-19] MEDS: predniSONE 20 MG TABLET PO SCH (09:46)
[2019-01-19] MEDS: ASCORBIC ACID 500 MG TABLET PO SCH ×2 (09:47→20:18)
[2019-01-19] MEDS: LANSOPRAZOLE ODT 30 MG TABLET PER TUBE SCH ×2 (09:47→20:19)
[2019-01-19] MEDS: FUROSEMIDE 40 MG/4 ML VIAL IV SCH (09:47)
[2019-01-19] MEDS: CYANOCOBALAMIN 500 MCG TABLET PO SCH (09:47)
[2019-01-19] MEDS: MENTHOL/ZINC OXIDE OINT 71 GM JAR TOP SCH ×2 (09:48→20:17)
[2019-01-19] MEDS: POLYETHYLENE GLYCOL POWDER 17 GM PACK PO SCH (09:58)
[2019-01-19] MEDS ORDERED: CALCIUM GLUCONATE 1,000 MG in SODIUM CHLORIDE 0.9% 100 ML IV ONE (10:00)
[2019-01-19 10:03] LABS: Anisocytosis 2+; Lymphocytes 4 % (20-55); Platelet Estimate Decreased; Segmented Neutrophils 94 % (50-85); Total Cells Counted 100
[2019-01-19 10:04] LABS: Basophilic Stippling Slight
[2019-01-19 11:35] LABS: Basophils % 0.1 % (0.0-0.8); Eosinophils # 0.1 10*3/uL (0.0-0.87); Eosinophils % 0.4 % (0.00-10.9); Hematocrit 33.2 VOL% (35.7-47.0); Hemoglobin 11.3 GM/DL (12.0-16.0); Immature Granulocytes % 1.2 %; Immature Granulocytes Absolute 0.25 #; Lymphocytes # 0.5 10*3/uL (1.4-4.0); Lymphocytes % 2.4 % (21.3-54.2); Mean Corpuscular Volume 89.2 FL (87-102); Mean Platelet Volume 11.3 FL (9.6-12.0); NRBC # 0.03 10*3/uL; Neutrophils % 91.9 % (38.7-73.9); Platelet Count 82 T/CUMM (130-400); Red Blood Count 3.72 MC/CUMM (3.8-5.5); Red Cell Distribution Width 15.2 % (9.3-17.3); White Blood Count 20.6 T/CUMM (4-12)
[2019-01-19 11:56] LABS: Band Neutrophils 1 % (0-10); Eosinophils 1 % (0-10); Lymphocytes 6 % (20-55); Nucleated Red Blood Cells 1 (0-5); Segmented Neutrophils 89 % (50-85); Total Cells Counted 100
[2019-01-19 11:57] LABS: Platelet Estimate Decreased
[2019-01-19 11:58] LABS: Anisocytosis 2+
[2019-01-19 11:59] LABS: Macrocytosis Slight; Poikilocytosis Slight; Polychromasia Slight
[2019-01-19] MEDS: METOPROLOL TARTRATE 25 MG TABLET PO SCH ×2 (13:48→20:18)
[2019-01-19 16:19] LABS: Basophils % 0.1 % (0.0-0.8); Eosinophils % 0.1 % (0.00-10.9); Hematocrit 39.1 VOL% (35.7-47.0); Immature Granulocytes % 0.9 %; Immature Granulocytes Absolute 0.16 #; Lymphocytes # 0.2 10*3/uL (1.4-4.0); Lymphocytes % 1.1 % (21.3-54.2); Mean Corpuscular HGB Conc 34.3 GM/DL (32-36); Mean Corpuscular Volume 88.9 FL (87-102); Mean Platelet Volume 11.5 FL (9.6-12.0); Monocytes % 1.4 % (1.7-12.7); NRBC # 0.02 10*3/uL; Neutrophils % 96.4 % (38.7-73.9); Platelet Count 67 T/CUMM (130-400); Red Cell Distribution Width 15.6 % (9.3-17.3)
[2019-01-19 16:24] LABS: Hemoglobin 13.4 GM/DL (12.0-16.0)
[2019-01-19] MEDS: amLODIPine 5 MG TABLET PO SCH (16:35)
[2019-01-19 18:30] LABS: Lymphocytes 1 % (20-55); Platelet Estimate Decreased; Segmented Neutrophils 99 % (50-85); Total Cells Counted 100
[2019-01-19 18:31] LABS: Anisocytosis 2+; Burr Cells Few; Hypochromasia Slight; Microcytosis Slight; Ovalocytes 1+
[2019-01-19 18:32] LABS: Poikilocytosis 2+
[2019-01-19] MEDS: hydrALAZINE 20 MG/1 ML VIAL IV PRN (20:18)
[2019-01-19] MEDS: ATORVASTATIN 80 MG TABLET PO SCH (20:18)
[2019-01-19] MEDS: EZETIMIBE 10 MG TABLET PO SCH (20:19)
[2019-01-20] MEDS: INSULIN REGULAR 100 UNIT/ML SUBCUT SCH ×4 (00:25→18:02)
[2019-01-20 02:42] LABS: Basophils % 0.1 % (0.0-0.8); Hematocrit 34.1 VOL% (35.7-47.0); Hemoglobin 11.4 GM/DL (12.0-16.0); Immature Granulocytes % 1.3 %; Lymphocytes # 0.2 10*3/uL (1.4-4.0); Lymphocytes % 0.9 % (21.3-54.2); Mean Corpuscular HGB Conc 33.4 GM/DL (32-36); Mean Corpuscular Volume 89.7 FL (87-102); Monocytes % 1.8 % (1.7-12.7); NRBC # 0.02 10*3/uL; Neutrophils % 95.9 % (38.7-73.9); Platelet Count 89 T/CUMM (130-400); Red Cell Distribution Width 15.9 % (9.3-17.3); White Blood Count 22.3 T/CUMM (4-12)
[2019-01-20 03:06] LABS: Band Neutrophils 1 % (0-10); Lymphocytes 1 % (20-55); Nucleated Red Blood Cells 1 (0-5); Segmented Neutrophils 95 % (50-85); Target Cells Few; Total Cells Counted 100
[2019-01-20 03:07] LABS: Anisocytosis 1+; Ovalocytes Few; Platelet Estimate Decreased
[2019-01-20 04:20] LABS: ABG Base Excess -2.6 MMOL/L (-2.5-2.5); ABG HCO3 22.1 MMOL/L (20-26); ABG Oxygen Saturation 94.1 % (95-100); ABG PCO2 46.4 MM HG (35-48); ABG PH 7.317 (7.35-7.45); ABG PO2 75.2 MM HG (80-95); ABG TCO2 21.3 MMOL/L (23-27); Allen Test Positive; Pt O2 Delivery Device Ventilator
[2019-01-20 04:26] LABS: INR 0.9; PT Patient Result 10.1 SECS (9.6-12.2)
[2019-01-20 05:04] LABS: Calcium 10.2 MG/DL (8.5-10.1); Osmolality,Calculated 314.4 MOS/KG (273-304)
[2019-01-20 05:10] LABS: Albumin 3.8 G/DL (3.4-5.0); Osmolality,Calculated 312.5 MOS/KG (273-304); Total Protein 6.2 G/DL (6.4-8.3)
[2019-01-20] MEDS: LEVOTHYROXINE 88 MCG TABLET PO SCH (05:59)
[2019-01-20] MEDS: hydrALAZINE 20 MG/1 ML VIAL IV PRN (08:26)
[2019-01-20] MEDS ORDERED: POLYETHYLENE GLYCOL POWDER 17 GM PACK PO SCH (09:00)
[2019-01-20] MEDS: SUCRALFATE 1 GM TABLET NG SCH ×4 (09:18→20:23)
[2019-01-20] MEDS: predniSONE 20 MG TABLET PO SCH (09:19)
[2019-01-20] MEDS: CYANOCOBALAMIN 500 MCG TABLET PO SCH (09:19)
[2019-01-20] MEDS: amLODIPine 5 MG TABLET PO SCH (09:19)
[2019-01-20] MEDS: ASCORBIC ACID 500 MG TABLET PO SCH ×2 (09:19→20:23)
[2019-01-20] MEDS: AMIODARONE 200 MG TABLET PO SCH (09:19)
[2019-01-20] MEDS: METOPROLOL TARTRATE 25 MG TABLET PO SCH ×2 (09:19→20:23)
[2019-01-20] MEDS: MAGNESIUM OXIDE 400 MG TABLET PO SCH (09:20)
[2019-01-20] MEDS: MENTHOL/ZINC OXIDE OINT 71 GM JAR TOP SCH ×2 (09:40→20:15)
[2019-01-20 11:37] LABS: Hepatitis B Core IgM Quant 0.57 Index; Hepatitis B Surface Ag Quant < 0.10 Index; Hepatitis B Surface Ag Result Negative (Negative); Hepatitis C Virus Ab Quant < 0.02 Index; Hepatitis C Virus Ab Result Negative (Negative)
[2019-01-20] MEDS: LANSOPRAZOLE ODT 30 MG TABLET PER TUBE SCH ×2 (12:21→20:23)
[2019-01-20] MEDS: ALBUMIN 25% 25 GM in PREMIX 1 EACH IV SCH ×2 (12:21→22:45)
[2019-01-20] MEDS: PIPERACILLIN/TAZOBACTAM 3,375 MG in SODIUM CHLORIDE 0.9% 100 ML IV SCH ×2 (12:21→22:45)
[2019-01-20] MEDS: PROPOFOL 1,000 MG/100 ML BOTTLE IV SCH (12:22)
[2019-01-20 14:13] LABS: Basophils % 0.2 % (0.0-0.8); Hemoglobin 11.1 GM/DL (12.0-16.0); Immature Granulocytes % 1.1 %; Lymphocytes # 0.3 10*3/uL (1.4-4.0); Lymphocytes % 1.1 % (21.3-54.2); Mean Corpuscular HGB Conc 33.6 GM/DL (32-36); Mean Corpuscular Volume 90.4 FL (87-102); Mean Platelet Volume 12.3 FL (9.6-12.0); Monocytes % 2.9 % (1.7-12.7); NRBC # 0.02 10*3/uL; Neutrophils % 94.7 % (38.7-73.9); Platelet Count 98 T/CUMM (130-400); Red Blood Count 3.65 MC/CUMM (3.8-5.5); Red Cell Distribution Width 15.9 % (9.3-17.3); White Blood Count 26.6 T/CUMM (4-12)
[2019-01-20 14:46] LABS: Lymphocytes 2 % (20-55); Platelet Estimate Decreased; Segmented Neutrophils 96 % (50-85); Total Cells Counted 100
[2019-01-20] MEDS: EZETIMIBE 10 MG TABLET PO SCH (20:23)
[2019-01-20] MEDS: ATORVASTATIN 80 MG TABLET PO SCH (20:23)
[2019-01-20] MEDS ORDERED: VANCOMYCIN INJ 1,750 MG in SODIUM CHLORIDE 0.9% 500 ML IV ONE (21:00)
[2019-01-21] MEDS: INSULIN REGULAR 100 UNIT/ML SUBCUT SCH ×4 (00:26→18:10)
[2019-01-21 03:56] LABS: ABG Base Excess -0.7 MMOL/L (-2.5-2.5); ABG HCO3 23.8 MMOL/L (20-26); ABG Oxygen Saturation 96.3 % (95-100); ABG PCO2 43.9 MM HG (35-48); ABG PH 7.362 (7.35-7.45); ABG PO2 82.2 MM HG (80-95); ABG TCO2 22.5 MMOL/L (23-27); Pt O2 Delivery Device Ventilator
[2019-01-21 04:53] LABS: Basophils % 0.1 % (0.0-0.8); Hemoglobin 10.5 GM/DL (12.0-16.0); Immature Granulocytes Absolute 0.22 #; Lymphocytes # 0.3 10*3/uL (1.4-4.0); Lymphocytes % 1.1 % (21.3-54.2); Mean Corpuscular HGB Conc 32.8 GM/DL (32-36); Mean Corpuscular Volume 93.3 FL (87-102); Mean Platelet Volume 11.1 FL (9.6-12.0); Monocytes % 3.7 % (1.7-12.7); NRBC # 0.02 10*3/uL; Neutrophils % 94.1 % (38.7-73.9); Platelet Count 98 T/CUMM (130-400); Red Blood Count 3.43 MC/CUMM (3.8-5.5); Red Cell Distribution Width 15.9 % (9.3-17.3)
[2019-01-21 05:12] LABS: Bilirubin,Total 0.8 MG/DL (0.2-1.0); Calcium 9.6 MG/DL (8.5-10.1); Osmolality,Calculated 298.5 MOS/KG (273-304); Total Protein 6.2 G/DL (6.4-8.3)
[2019-01-21 05:20] LABS: PT Patient Result 10.7 SECS (9.6-12.2)
[2019-01-21] MEDS: LEVOTHYROXINE 88 MCG TABLET PO SCH (06:05)
[2019-01-21 06:27] LABS: Lymphocytes 3 % (20-55); Segmented Neutrophils 95 % (50-85); Total Cells Counted 100
[2019-01-21 06:28] LABS: Hypochromasia Slight; Platelet Estimate Decreased
[2019-01-21] MEDS: PROPOFOL 1,000 MG/100 ML BOTTLE IV SCH (09:02)
[2019-01-21] MEDS: amLODIPine 5 MG TABLET PO SCH (10:03)
[2019-01-21] MEDS: METOPROLOL TARTRATE 25 MG TABLET PO SCH ×2 (10:03→21:33)
[2019-01-21] MEDS: ASCORBIC ACID 500 MG TABLET PO SCH ×2 (10:03→21:32)
[2019-01-21] MEDS: predniSONE 20 MG TABLET PO SCH (10:04)
[2019-01-21] MEDS: MENTHOL/ZINC OXIDE OINT 71 GM JAR TOP SCH ×2 (10:04→21:33)
[2019-01-21] MEDS: MAGNESIUM OXIDE 400 MG TABLET PO SCH (10:04)
[2019-01-21] MEDS: CHOLECALCIFEROL 1,000 UNIT TABLET PO SCH (10:04)
[2019-01-21] MEDS: AMIODARONE 200 MG TABLET PO SCH (10:04)
[2019-01-21] MEDS: SUCRALFATE 1 GM TABLET NG SCH ×4 (10:04→21:32)
[2019-01-21] MEDS: LANSOPRAZOLE ODT 30 MG TABLET PER TUBE SCH ×2 (10:05→21:33)
[2019-01-21] MEDS: CYANOCOBALAMIN 500 MCG TABLET PO SCH (10:05)
[2019-01-21] MEDS: ALBUMIN 25% 25 GM in PREMIX 1 EACH IV SCH (11:15)
[2019-01-21] MEDS: PIPERACILLIN/TAZOBACTAM 3,375 MG in SODIUM CHLORIDE 0.9% 100 ML IV SCH (12:32)
[2019-01-21] MEDS: INSULIN GLARGINE 100 UNIT/ML SUBCUT SCH (15:15)
[2019-01-21] MEDS ORDERED: VANCOMYCIN INJ 750 MG in SODIUM CHLORIDE 0.9% 250 ML IV PRN (17:00)
[2019-01-21] MEDS: ATORVASTATIN 80 MG TABLET PO SCH (21:32)
[2019-01-21] MEDS: EZETIMIBE 10 MG TABLET PO SCH (21:32)
[2019-01-22] MEDS: ALBUMIN 25% 25 GM in PREMIX 1 EACH IV SCH ×2 (00:21→12:41)
[2019-01-22] MEDS: INSULIN REGULAR 100 UNIT/ML SUBCUT SCH ×4 (00:22→18:13)
[2019-01-22] MEDS: PIPERACILLIN/TAZOBACTAM 3,375 MG in SODIUM CHLORIDE 0.9% 100 ML IV SCH ×2 (01:29→16:00)
[2019-01-22 03:54] LABS: Basophils % 0.1 % (0.0-0.8); Hematocrit 27.5 VOL% (35.7-47.0); Hemoglobin 8.9 GM/DL (12.0-16.0); Immature Granulocytes % 0.6 %; Lymphocytes # 0.3 10*3/uL (1.4-4.0); Lymphocytes % 1.8 % (21.3-54.2); Mean Corpuscular HGB Conc 32.4 GM/DL (32-36); Mean Corpuscular Volume 94.5 FL (87-102); Mean Platelet Volume 11.6 FL (9.6-12.0); Neutrophils % 93.5 % (38.7-73.9); Platelet Count 87 T/CUMM (130-400); Red Blood Count 2.91 MC/CUMM (3.8-5.5); Red Cell Distribution Width 15.6 % (9.3-17.3); White Blood Count 17.5 T/CUMM (4-12)
[2019-01-22 04:04] LABS: INR 1.2; PT Patient Result 13.3 SECS (9.6-12.2)
[2019-01-22 04:20] LABS: Albumin 3.6 G/DL (3.4-5.0); Bilirubin,Total 0.6 MG/DL (0.2-1.0); Osmolality,Calculated 306.7 MOS/KG (273-304); Total Protein 5.6 G/DL (6.4-8.3)
[2019-01-22 04:21] LABS: Prealbumin 23.7 MG/DL (20-40)
[2019-01-22 04:43] LABS: Lymphocytes 1 % (20-55); Segmented Neutrophils 94 % (50-85); Total Cells Counted 100
[2019-01-22 04:44] LABS: Hypochromasia 1+; Platelet Estimate Decreased
[2019-01-22 05:20] LABS: ABG Base Excess -2.4 MMOL/L (-2.5-2.5); ABG HCO3 22.4 MMOL/L (20-26); ABG Oxygen Saturation 97.8 % (95-100); ABG PCO2 44.9 MM HG (35-48); ABG PH 7.329 (7.35-7.45); ABG TCO2 21.8 MMOL/L (23-27); Pt O2 Delivery Device Ventilator
[2019-01-22] MEDS: MORPHINE 4 MG/1 ML VIAL IV PRN ×3 (05:42→19:50)
[2019-01-22] MEDS: LEVOTHYROXINE 88 MCG TABLET PO SCH (06:43)
[2019-01-22] MEDS ORDERED: SODIUM CHLORIDE 0.9% 1,000 ML IV PRN ×2 (06:47→08:02)
[2019-01-22 08:41] LABS: von Willebrand Factor Activity 150 % (55 - 200)
[2019-01-22] MEDS: MENTHOL/ZINC OXIDE OINT 71 GM JAR TOP SCH ×2 (10:55→20:07)
[2019-01-22] MEDS: SUCRALFATE 1 GM TABLET NG SCH ×4 (10:55→20:07)
[2019-01-22] MEDS: ASCORBIC ACID 500 MG TABLET PO SCH ×2 (10:56→20:07)
[2019-01-22] MEDS: METOPROLOL TARTRATE 25 MG TABLET PO SCH ×2 (10:56→20:07)
[2019-01-22] MEDS: CYANOCOBALAMIN 500 MCG TABLET PO SCH (10:56)
[2019-01-22] MEDS: MAGNESIUM OXIDE 400 MG TABLET PO SCH (10:56)
[2019-01-22] MEDS: amLODIPine 5 MG TABLET PO SCH (10:56)
[2019-01-22] MEDS: predniSONE 20 MG TABLET PO SCH (10:56)
[2019-01-22] MEDS: LANSOPRAZOLE ODT 30 MG TABLET PER TUBE SCH ×2 (10:58→20:07)
[2019-01-22] MEDS: AMIODARONE 200 MG TABLET PO SCH (10:58)
[2019-01-22] MEDS: INSULIN GLARGINE 100 UNIT/ML SUBCUT SCH (11:03)
[2019-01-22] MEDS: PROPOFOL 1,000 MG/100 ML BOTTLE IV SCH (17:15)
[2019-01-22] MEDS: ATORVASTATIN 80 MG TABLET PO SCH (20:07)
[2019-01-22] MEDS: EZETIMIBE 10 MG TABLET PO SCH (20:07)
[2019-01-23] MEDS: ALBUMIN 25% 25 GM in PREMIX 1 EACH IV SCH ×3 (00:07→23:05)
[2019-01-23] MEDS: INSULIN REGULAR 100 UNIT/ML SUBCUT SCH ×4 (00:28→18:23)
[2019-01-23] MEDS: PIPERACILLIN/TAZOBACTAM 3,375 MG in SODIUM CHLORIDE 0.9% 100 ML IV SCH ×2 (01:59→16:46)
[2019-01-23 03:35] LABS: ABG Base Excess -1.2 MMOL/L (-2.5-2.5); ABG HCO3 23.3 MMOL/L (20-26); ABG Oxygen Saturation 95.8 % (95-100); ABG PH 7.321 (7.35-7.45); ABG PO2 79.7 MM HG (80-95); ABG TCO2 22.9 MMOL/L (23-27); Allen Test Positive; Pt O2 Delivery Device Ventilator
[2019-01-23 04:16] LABS: Basophils % 0.1 % (0.0-0.8); Hematocrit 34.1 VOL% (35.7-47.0); Immature Granulocytes % 0.7 %; Immature Granulocytes Absolute 0.11 #; Lymphocytes # 0.4 10*3/uL (1.4-4.0); Lymphocytes % 2.2 % (21.3-54.2); Mean Corpuscular HGB Conc 32.3 GM/DL (32-36); Mean Corpuscular Volume 94.7 FL (87-102); Mean Platelet Volume 11.9 FL (9.6-12.0); Platelet Count 105 T/CUMM (130-400); Red Cell Distribution Width 15.5 % (9.3-17.3); White Blood Count 16.8 T/CUMM (4-12)
[2019-01-23 04:34] LABS: Albumin 4.1 G/DL (3.4-5.0); Calcium 9.5 MG/DL (8.5-10.1); Osmolality,Calculated 295.7 MOS/KG (273-304); PT Patient Result 11.3 SECS (9.6-12.2); Total Protein 6.4 G/DL (6.4-8.3)
[2019-01-23 04:45] LABS: Hypochromasia 1+; Lymphocytes 3 % (20-55); Ovalocytes Slight; Platelet Estimate Decreased; Segmented Neutrophils 94 % (50-85); Total Cells Counted 100
[2019-01-23] MEDS: MORPHINE 4 MG/1 ML VIAL IV PRN ×2 (05:01→15:30)
[2019-01-23] MEDS: LEVOTHYROXINE 88 MCG TABLET PO SCH (05:59)
[2019-01-23] MEDS ORDERED: LIDOCAINE 2% 5 ML VIAL ONE ×2 (09:00→13:57)
[2019-01-23] MEDS ORDERED: ETOMIDATE 20 MG/10 ML VIAL IV ONE (09:00)
[2019-01-23] MEDS ORDERED: PROPOFOL 200 MG/20 ML VIAL IV ONE ×2 (09:00→13:57)
[2019-01-23] MEDS: SUCRALFATE 1 GM TABLET NG SCH ×4 (10:51→20:07)
[2019-01-23] MEDS: PROPOFOL 1,000 MG/100 ML BOTTLE IV SCH ×2 (10:53→18:14)
[2019-01-23] MEDS: INSULIN GLARGINE 100 UNIT/ML SUBCUT SCH (10:53)
[2019-01-23] MEDS: MENTHOL/ZINC OXIDE OINT 71 GM JAR TOP SCH ×2 (10:53→20:08)
[2019-01-23] MEDS: AMIODARONE 200 MG TABLET PO SCH (10:53)
[2019-01-23] MEDS: MAGNESIUM OXIDE 400 MG TABLET PO SCH (10:54)
[2019-01-23] MEDS: METOPROLOL TARTRATE 25 MG TABLET PO SCH ×2 (10:54→20:08)
[2019-01-23] MEDS: predniSONE 20 MG TABLET PO SCH (10:54)
[2019-01-23] MEDS: amLODIPine 5 MG TABLET PO SCH (10:54)
[2019-01-23] MEDS: LANSOPRAZOLE ODT 30 MG TABLET PER TUBE SCH ×2 (10:55→20:08)
[2019-01-23] MEDS: CHOLECALCIFEROL 1,000 UNIT TABLET PO SCH (10:55)
[2019-01-23] MEDS: ASCORBIC ACID 500 MG TABLET PO SCH ×2 (10:55→20:07)
[2019-01-23] MEDS: CYANOCOBALAMIN 500 MCG TABLET PO SCH (10:55)
[2019-01-23] MEDS ORDERED: ETOMIDATE 40 MG/20 ML VIAL IV ONE (13:57)
[2019-01-23] MEDS ORDERED: NITROGLYCERIN SL 0.4 MG TABLET SL ONE ×4 (15:45→15:50)
[2019-01-23 15:58] LABS: Basophils % 0.1 % (0.0-0.8); Eosinophils # 0.1 10*3/uL (0.0-0.87); Eosinophils % 0.6 % (0.00-10.9); Hematocrit 33.4 VOL% (35.7-47.0); Hemoglobin 10.6 GM/DL (12.0-16.0); Immature Granulocytes % 0.7 %; Immature Granulocytes Absolute 0.11 #; Lymphocytes % 5.9 % (21.3-54.2); Mean Corpuscular HGB Conc 31.7 GM/DL (32-36); Mean Corpuscular Volume 95.2 FL (87-102); Monocytes % 8.2 % (1.7-12.7); Neutrophils % 84.5 % (38.7-73.9); Platelet Count 104 T/CUMM (130-400); Red Blood Count 3.51 MC/CUMM (3.8-5.5); Red Cell Distribution Width 15.7 % (9.3-17.3); White Blood Count 16.4 T/CUMM (4-12)
[2019-01-23 16:22] LABS: Blood Urea Nitrogen 70 MG/DL (7-18); Calcium 9.6 MG/DL (8.5-10.1); Estimated Glom Filtration Rate 12 ML/MIN; Glucose 128 MG/DL (74-106); Osmolality,Calculated 297.7 MOS/KG (273-304)
[2019-01-23] MEDS ORDERED: VANCOMYCIN INJ 750 MG in SODIUM CHLORIDE 0.9% 250 ML IV ONE (17:00)
[2019-01-23] MEDS: ATORVASTATIN 80 MG TABLET PO SCH (20:07)
[2019-01-23] MEDS: EZETIMIBE 10 MG TABLET PO SCH (20:08)
[2019-01-24] MEDS: INSULIN REGULAR 100 UNIT/ML SUBCUT SCH ×3 (00:13→11:45)
[2019-01-24 03:16] LABS: ABG Base Excess -3.4 MMOL/L (-2.5-2.5); ABG HCO3 21.6 MMOL/L (20-26); ABG Oxygen Saturation 97.6 % (95-100); ABG PCO2 52.5 MM HG (35-48); ABG PH 7.269 (7.35-7.45); Allen Test Positive; Pt O2 Delivery Device Ventilator
[2019-01-24 03:43] LABS: Basophils % 0.1 % (0.0-0.8); Eosinophils # 0.1 10*3/uL (0.0-0.87); Eosinophils % 1.1 % (0.00-10.9); Hemoglobin 10.5 GM/DL (12.0-16.0); Immature Granulocytes % 0.8 %; Immature Granulocytes Absolute 0.09 #; Lymphocytes # 0.7 10*3/uL (1.4-4.0); Lymphocytes % 6.3 % (21.3-54.2); Mean Corpuscular HGB Conc 31.8 GM/DL (32-36); Mean Corpuscular Volume 96.5 FL (87-102); Mean Platelet Volume 12.1 FL (9.6-12.0); Monocytes % 8.8 % (1.7-12.7); Neutrophils % 82.9 % (38.7-73.9); Platelet Count 86 T/CUMM (130-400); Red Blood Count 3.42 MC/CUMM (3.8-5.5); Red Cell Distribution Width 15.4 % (9.3-17.3); White Blood Count 10.7 T/CUMM (4-12)
[2019-01-24 04:16] LABS: Anisocytosis Slight; Macrocytosis Slight; Platelet Estimate Decreased
[2019-01-24 04:33] LABS: Bilirubin,Total 0.9 MG/DL (0.2-1.0); Calcium 9.9 MG/DL (8.5-10.1); Osmolality,Calculated 299.5 MOS/KG (273-304); Total Protein 5.9 G/DL (6.4-8.3)
[2019-01-24] MEDS: LEVOTHYROXINE 88 MCG TABLET PO SCH (05:45)
[2019-01-24 06:32] VITALS: BP 100/58
[2019-01-24] MEDS: PROPOFOL 1,000 MG/100 ML BOTTLE IV SCH (08:15)
[2019-01-24] MEDS: AMIODARONE 200 MG TABLET PO SCH (09:45)
[2019-01-24] MEDS: predniSONE 20 MG TABLET PO SCH (09:45)
[2019-01-24] MEDS: MENTHOL/ZINC OXIDE OINT 71 GM JAR TOP SCH (09:45)
[2019-01-24] MEDS: MAGNESIUM OXIDE 400 MG TABLET PO SCH (09:45)
[2019-01-24] MEDS: SUCRALFATE 1 GM TABLET NG SCH ×3 (09:45→15:34)
[2019-01-24] MEDS: amLODIPine 5 MG TABLET PO SCH (09:45)
[2019-01-24] MEDS: INSULIN GLARGINE 100 UNIT/ML SUBCUT SCH (09:45)
[2019-01-24] MEDS: METOPROLOL TARTRATE 25 MG TABLET PO SCH (09:45)
[2019-01-24] MEDS: CYANOCOBALAMIN 500 MCG TABLET PO SCH (09:46)
[2019-01-24] MEDS: ASCORBIC ACID 500 MG TABLET PO SCH (09:46)
[2019-01-24] MEDS: LANSOPRAZOLE ODT 30 MG TABLET PER TUBE SCH (09:46)
[2019-01-24] MEDS: MORPHINE 4 MG/1 ML VIAL IV PRN (10:08)
[2019-01-24] MEDS: ALBUMIN 25% 25 GM in PREMIX 1 EACH IV SCH (11:45)
[2019-01-24] MEDS ORDERED: HEPARIN 10,000 UNIT/10 ML VIAL IV SCH (15:30)
[2019-03-14] MEDS ORDERED: DENOSUMAB 60 MG/ML SYRINGE SUBCUT SCH (09:00)
== END 2019-01-24 17:47 | DRG 4 ==
LOC: EDUNIT# → EDBD → N.ED 14:04 → N.EDINP 14:04 → SUATTDRO 17:30 → N.5E 19:47 → SUATTDRO 01-07 15:42 → N.CC 01-09 03:29
PROVIDERS: ADMIT Internal Medicine; ATTEND Internal Medicine
PROC: EGDWPEG (ICD-10-PCS; 2019-01-23 11:50)